=== PATIENT | female | born 1990 | race African-American/Black ===

== ENCOUNTER 2018-05-18 19:03 | Inpatient (IN) | payer OTHER ==
[~2018-05-18] VITALS: Ht 193 cm; Wt 127.0 kg
[2018-05-18 20:56] LABS: BASO # 0.1 x10^3/uL (0.0-0.2); BASO % 1 % (0-3); EOS # 0.1 x10^3/uL (0.0-0.7); EOS % 0 % (0-3); HEMATOCRIT 38.1 % (36.0-47.0); HEMOGLOBIN 13.4 g/dL (12.0-15.5); LYMPH # 2.3 x10^3/uL (1.0-4.8); LYMPH % 15 % (24-48); MEAN CORPUSCULAR HEMOGLOBIN 28 pg (25-35); MEAN CORPUSCULAR HGB CONC 35 g/dL (31-37); MEAN CORPUSCULAR VOLUME 78 fL (79-100); MONO # 1.2 x10^3/uL (0.0-1.1); MONO % 8 % (0-9); NEUT # 11.8 x10^3uL (1.8-7.7); NEUT % 76 % (31-73); PLATELET COUNT 303 x10^3/uL (140-400); RED BLOOD COUNT 4.86 x10^6/uL (3.50-5.40); RED CELL DISTRIBUTION WIDTH 14.6 % (11.5-14.5); WHITE BLOOD COUNT 15.5 x10^3/uL (4.0-11.0)
[2018-05-18] MEDS ORDERED: IV NORMAL SALINE 1000ML BAG 1,000 ML IV ONE (21:00)
[2018-05-18 21:06] LABS: CALCIUM 9.3 mg/dL (8.5-10.1); CREATININE 0.9 mg/dL (0.6-1.0); GFR 92.3; POTASSIUM 3.4 mmol/L (3.5-5.1)
[2018-05-18 21:11] LABS: ALBUMIN 3.5 g/dL (3.4-5.0); ALBUMIN/GLOBULIN RATIO 0.8 (1.0-1.7); TOTAL BILIRUBIN 1.1 mg/dL (0.2-1.0)
[2018-05-18] MEDS ORDERED: CONTRAST GIVEN. MC PRN (21:15)
[2018-05-18] MEDS ORDERED: DICYCLOMINE 20 MG/2 ML AMPUL. IM ONE (21:15)
[2018-05-18] MEDS ORDERED: IOHEXOL 300 MG/ML 100ML VIAL. IV ONE (21:15)
[2018-05-18] MEDS ORDERED: ONDANSETRON PF 4 MG/2 ML VIAL. IM ONE (21:15)
[2018-05-18] MEDS ORDERED: fentaNYL PF VIAL 100 MCG/2 ML VIAL IV ONE ×2 (21:15→23:30)
[2018-05-18] MEDS ORDERED: ONDANSETRON PF 4 MG/2 ML VIAL. IV ONE ×2 (21:30→23:30)
[2018-05-18 21:34] LABS: BILIRUBIN,URINE NEGATIVE (NEG); CLARITY,URINE CLEAR; COLOR,URINE AMBER; NITRITE,URINE NEGATIVE (NEG); PROTEIN,URINE NEGATIVE (NEG-TRACE); UROBILINOGEN,URINE 0.2 mg/dL (0.2 mg/dL)
[2018-05-18 21:46] LABS: BACTERIA,URINE MODERATE /HPF (0-FEW); RBC,URINE OCC /HPF (0-2); SQUAMOUS EPITHELIAL CELL,UR MOD /LPF
--- NOTE | 2018-05-18 22:09 | RAD ---
PQRS Compliance statement: One or more of the following individualized dose reduction techniques were utilized for this examination: 1. Automated exposure control. 2. Adjustment of the mA and/or kV according to patient size. 3. Use of iterative reconstruction technique. Indication:mid abd pain, nausea, vomiting, diarrhea, x1day
Omni 300 75ml, no priors TECHNIQUE: CT abdomen with IV contrast with multiplanar reformats. COMPARISON: None FINDINGS: Heart and lung bases. Liver, spleen, pancreas, adrenals within normal limits. Gallstones noted. No pericholecystic fluid. No nephrolithiasis or hydronephrosis. No enlarged retroperitoneal adenopathy. No bowel obstruction. The appendix is dilated measuring 1.7 cm with periappendiceal inflammatory changes. No pneumoperitoneum. No suspicious bony lesion. IMPRESSION: 1. There is a tubular thick-walled structure in the right lower quadrant with surrounding inflammatory changes. The nearby small bowel loops makes it difficult to confirm the presence of appendix. However the findings are concerning for appendicitis in right clinical context. 2. Cholelithiasis without sonographic evidence of acute cholecystitis. Electronically signed by: Rivas Liriano DO (05/18/2018 10:06 PM) [facility]
--- NOTE | 2018-05-18 22:26 | PHYS DOC ---
Past Medical History Past Medical History: Hypertension Past Surgical History: No Surgical History Alcohol Use: Occasionally Drug Use: None Adult General Chief Complaint Chief Complaint: ABDOMINAL PAIN HPI HPI Patient is a 27 year old female who presents with 5 loose stools today in vomited up bile once with mid abdominal pain and upper left abdominal pain that all started yesterday. Patient states her last visit. Was a week and half ago. She denies any urinary symptoms or fever. She denies any unusual vaginal discharge. Patient states that her only health history is hypertension during and anxiety. Patient states she does not take any medications daily. She has no known drug allergies Review of Systems Review of Systems Constitutional: Denies fever or chills [] Eyes: Denies change in visual acuity, redness, or eye pain [] HENT: Denies nasal congestion or sore throat [] Respiratory: Denies cough or shortness of breath [] Cardiovascular: No additional information not addressed in HPI [] GI: Mid abdominal pain, nausea, vomiting. Denies bloody stool. diarrhea x 5 stools [] : Denies dysuria or hematuria [] Musculoskeletal: Denies back pain or joint pain [] Integument: Denies rash or skin lesions [] Neurologic: Denies headache, focal weakness or sensory changes [] Endocrine: Denies polyuria or polydipsia [] All other systems were reviewed and found to be within normal limits, except as documented in this note. Current Medications Current Medications Current Medications Medications (Trade) Dose Ordered Sig/Maurice Start Time Stop Time Status Last Admin Dose Admin Acetaminophen (Tylenol) 650 mg PRN Q4HRS PRN 05/18/18 23:15 05/19/18 23:14 UNV Dicyclomine HCl (Bentyl) 10 mg 1X ONCE 05/18/18 21:15 05/18/18 21:16 DC 05/18/18 21:13 10 MG Fentanyl Citrate (Fentanyl 2ml Vial) 50 mcg 1X ONCE 05/18/18 23:30 05/18/18 23:31 UNV Info (CONTRAST GIVEN -- Rx MONITORING) 1 each PRN DAILY PRN 05/18/18 21:15 05/20/18 21:14 Iohexol (Omnipaque 300 Mg/ml) 75 ml 1X ONCE 05/18/18 21:15 05/18/18 21:16 DC 05/18/18 21:15 75 ML Ondansetron HCl (Zofran) 4 mg 1X ONCE 05/18/18 23:30 05/18/18 23:31 UNV Piperacillin Sod/ Tazobactam Sod 3.375 gm/Sodium Chloride 50 ml @ 100 mls/hr Q6HRS 05/19/18 00:00 UNV Sodium Chloride 1,000 ml @ 80 mls/hr [id number] 05/18/18 23:09 05/19/18 23:08 UNV Allergies Allergies Allergies Coded Allergies Type Severity Reaction Last Updated Verified No Known Drug Allergies 05/18/18 No Physical Exam Physical Exam Constitutional: Well developed, well nourished, no acute distress, non-toxic appearance. [] HENT: Normocephalic, atraumatic, bilateral external ears normal, oropharynx moist, no oral exudates, nose normal. [] Eyes: PERRLA, EOMI, conjunctiva normal, no discharge. [] Neck: Normal range of motion, no tenderness, supple, no stridor. [] Cardiovascular:Heart rate regular rhythm, no murmur [] Lungs & Thorax: Bilateral breath sounds clear to auscultation [] Abdomen: Bowel sounds normal, soft, Mid and left upper quad tenderness, no masses, no pulsatile masses. [] Skin: Warm, dry, no erythema, no rash. [] Back: No tenderness, no CVA tenderness. [] Extremities: No tenderness, no cyanosis, no clubbing, ROM intact, no edema. [] Neurologic: Alert and oriented X 3, normal motor function, normal sensory function, no focal deficits noted. [] Psychologic: Affect normal, judgement normal, mood normal. [] Current Patient Data Vital Signs Vital Signs Date Time Temp Pulse Resp B/P (MAP) Pulse Ox O2 Delivery O2 Flow Rate FiO2 05/18/18 21:05 20 98 05/18/18 19:40 98.8 93 145/75 (98) Room Air 98.8 Lab Values Laboratory Tests Test 05/18/18 20:10 05/18/18 21:17 05/18/18 21:25 White Blood Count 15.5 x10^3/uL (4.0-11.0) H Red Blood Count 4.86 x10^6/uL (3.50-5.40) Hemoglobin 13.4 g/dL (12.0-15.5) Hematocrit 38.1 % (36.0-47.0) Mean Corpuscular Volume 78 fL (79-100) L Mean Corpuscular Hemoglobin 28 pg (25-35) Mean Corpuscular Hemoglobin Concent 35 g/dL (31-37) Red Cell Distribution Width 14.6 % (11.5-14.5) H Platelet Count 303 x10^3/uL (140-400) Neutrophils (%) (Auto) 76 % (31-73) H Lymphocytes (%) (Auto) 15 % (24-48) L Monocytes (%) (Auto) 8 % (0-9) Eosinophils (%) (Auto) 0 % (0-3) Basophils (%) (Auto) 1 % (0-3) Neutrophils # (Auto) 11.8 x10^3uL (1.8-7.7) H Lymphocytes # (Auto) 2.3 x10^3/uL (1.0-4.8) Monocytes # (Auto) 1.2 x10^3/uL (0.0-1.1) H Eosinophils # (Auto) 0.1 x10^3/uL (0.0-0.7) Basophils # (Auto) 0.1 x10^3/uL (0.0-0.2) Sodium Level 140 mmol/L (136-145) Potassium Level 3.4 mmol/L (3.5-5.1) L Chloride Level 103 mmol/L (98-107) Carbon Dioxide Level 28 mmol/L (21-32) Anion Gap 9 (6-14) Blood Urea Nitrogen 8 mg/dL (7-20) Creatinine 0.9 mg/dL (0.6-1.0) Estimated GFR (Cockcroft-Gault) 92.3 BUN/Creatinine Ratio 9 (6-20) Glucose Level 99 mg/dL (70-99) Calcium Level 9.3 mg/dL (8.5-10.1) Total Bilirubin 1.1 mg/dL (0.2-1.0) H Aspartate Amino Transferase (AST) 10 U/L (15-37) L Alanine Aminotransferase (ALT) 17 U/L (14-59) Alkaline Phosphatase 102 U/L (46-116) Total Protein 8.0 g/dL (6.4-8.2) Albumin 3.5 g/dL (3.4-5.0) Albumin/Globulin Ratio 0.8 (1.0-1.7) L Lipase 83 U/L (73-393) Urine Collection Type Void Urine Color Maggi Urine Clarity Clear Urine pH 7.0 Urine Specific [place] >=1.030 Urine Protein Negative mg/dL (NEG-TRACE) Urine Glucose (UA) Negative mg/dL (NEG) Urine Ketones (Stick) 40 mg/dL (NEG) Urine Blood Negative (NEG) Urine Nitrite Negative (NEG) Urine Bilirubin Negative (NEG) Urine Urobilinogen Dipstick 0.2 mg/dL (0.2 mg/dL) Urine Leukocyte Esterase Small (NEG) Urine RBC Occ /HPF (0-2) Urine WBC 1-4 /HPF (0-4) Urine Squamous Epithelial Cells Mod /LPF Urine Bacteria Moderate /HPF (0-FEW) Urine Mucus Mod /LPF POC Urine HCG, Qualitative Hcg negative (Negative) Laboratory Tests 05/18/18 20:10 Laboratory Tests 05/18/18 20:10 EKG EKG [] Radiology/Procedures Radiology/Procedures CT ABD Impressions: [facility] [address] [place] [address] IMAGING REPORT Signed PATIENT: CAITIE DOTSON ACCOUNT: [id number] : 1990 LOCATION: ER AGE: 27 SEX: F EXAM STATUS: REG ER ORD. PHYSICIAN: MONICA DEE APRN REASON: LEFT UPPER AND MID ABDOMINAL PAIN AND DIARRHEA PROCEDURE: CT ABDOMEN W/CONTRAST PQRS Compliance statement: One or more of the following individualized dose reduction techniques were utilized for this examination: 1. Automated exposure control. 2. Adjustment of the mA and/or kV according to patient size. 3. Use of iterative reconstruction technique. Indication:mid abd pain, nausea, vomiting, diarrhea, x1day
Omni 300 75ml, no priors TECHNIQUE: CT abdomen with IV contrast with multiplanar reformats. COMPARISON: None FINDINGS: Heart and lung bases. Liver, spleen, pancreas, adrenals within normal limits. Gallstones noted. No pericholecystic fluid. No nephrolithiasis or hydronephrosis. No enlarged retroperitoneal adenopathy. No bowel obstruction. The appendix is dilated measuring 1.7 cm with periappendiceal inflammatory changes. No pneumoperitoneum. No suspicious bony lesion. IMPRESSION: 1. There is a tubular thick-walled structure in the right lower quadrant with surrounding inflammatory changes. The nearby small bowel loops makes it difficult to confirm the presence of appendix. However the findings are concerning for appendicitis in right clinical context. 2. Cholelithiasis without sonographic evidence of acute cholecystitis. Electronically signed by: Rivas Klein DO (05/18/2018 10:06 PM) [facility] DICTATED and SIGNED BY: RIVAS KLEIN DO DATE: 05/18/182158 Course & Med Decision Making Course & Med Decision Making Patient is a 27 year old female who presents with 5 loose stools today in vomited up bile once with mid abdominal pain and upper left abdominal pain that all started yesterday. Patient states her last visit. Was a week and half ago. She denies any urinary symptoms or fever. She denies any unusual vaginal discharge. Patient states that her only health history is hypertension during and anxiety. Patient states she does not take any medications daily. She has no known drug allergies. She is alert and oriented. Upon examination abdomen is soft and tender in bilateral mid abdominal area and upper left abdominal area. Patient did not have any lower right sided abdominal tenderness. Patient does have a white blood cell count of 15.5. Urine is not infected. Patient is afebrile. She rates her pain 9 out of 10. Lungs are clear all lobes. No CVA tenderness. Patient states that nothing makes the pain better or worse. Heart rate is regular without murmur. CT abdomen shows 1. There is a tubular thick-walled structure in the right lower quadrant with surrounding inflammatory changes. The nearby small bowel loops makes it difficult to confirm the presence of appendix. However the findings are concerning for appendicitis in right clinical context. 2. Cholelithiasis without sonographic evidence of acute cholecystitis. I have ordered a ultrasound of her right lower quadrant. Skin is pink warm and dry mucous is moist. Patient is being admitted for appendicitis. There is a consult to general surgery. I have also ordered ordered Zosyn antibiotic. Upon reexamination patient states the pain is starting to come back if she states that it is mid abdominal pain still and that she is slightly nauseated again. Patient still has mid abdominal tenderness upon palpation. Does not have right lower abdominal tenderness at this time. I have ordered more pain medication and nausea medication for before she goes up to a inpatient room. The patient is stable and in no distress. [] Dragon Disclaimer Dragon Disclaimer This electronic medical record was generated, in whole or in part, using a voice recognition dictation system. Departure Departure Impression: Primary Impression: Appendicitis Disposition: ADMITTED INPATIENT Admitting Physician: Other Condition: STABLE Referrals: NO PCP (PCP) Problem Qualifiers Primary Impression: Appendicitis Appendicitis type: unspecified Qualified Codes: K37 - Unspecified appendicitis MONICA DEE SANITATION MANAGER May 18, 2018 22:26
[2018-05-18] MEDS ORDERED: ACETAMINOPHEN 325 MG TABLET. PO PRN (23:15)
[2018-05-18] MEDS ORDERED: ONDANSETRON PF 4 MG/2 ML VIAL. IV PRN (23:15)
--- NOTE | 2018-05-18 23:29 | RAD ---
Indication: Abnormal CT. Right lower quadrant abdominal pain TECHNIQUE: Grayscale and color Doppler images of the right lower quadrant COMPARISON: CT from same day Findings/ impression: Appendix is not visualized. No right lower quadrant fluid collection. Electronically signed by: Rivas Liriano DO (05/18/2018 11:26 PM) [facility]
[2018-05-18] MEDS ORDERED: PIPERACILLIN/TAZOBACTAM 3.375 GM in IV NORMAL SALINE 50ML 50 ML IV ONE (23:30)
[2018-05-18] MEDS: IV NORMAL SALINE 1000ML BAG 1,000 ML IV SCH (23:55)
[2018-05-19] VITALS (10 sets, daily range): BP systolic 122–146; BP diastolic 64–99
[2018-05-19] MEDS: fentaNYL PF VIAL 100 MCG/2 ML VIAL IV PRN ×8 (00:44→13:20)
[2018-05-19] MEDS ORDERED: BUPIVAC MPF-EPI 0.5%-1:200000 30 ML VIAL. ONE (06:11)
[2018-05-19] MEDS: PIPERACILLIN/TAZOBACTAM 3.375 GM in IV NORMAL SALINE 50ML 50 ML IV SCH ×3 (06:25→18:16)
[2018-05-19] MEDS ORDERED: GLYCOPYRROLATE 1 MG/5 ML VIAL. ONE (07:16)
[2018-05-19] MEDS ORDERED: fentaNYL PF VIAL 100 MCG/2 ML VIAL ONE ×3 (07:16→09:33)
[2018-05-19] MEDS ORDERED: ROCURONIUM 50 MG/5 ML VIAL. ONE (07:16)
[2018-05-19] MEDS ORDERED: NEOSTIGMINE 10 MG/10 ML VIAL. ONE (07:16)
[2018-05-19] MEDS ORDERED: DEXAMETHASONE SOD PHOS 20 MG/5 ML VIAL. ONE (07:17)
[2018-05-19] MEDS ORDERED: PROPOFOL 20 ML IV ONE (07:17)
[2018-05-19] MEDS ORDERED: DESFLURANE 31 TO 60 MINUTES IH ONE ×2 (07:17→08:55)
[2018-05-19] MEDS ORDERED: LIDOCAINE 2% PF Vial for OR 5 ML VIAL. ONE (07:18)
[2018-05-19] MEDS ORDERED: ONDANSETRON PF 4 MG/2 ML VIAL. ONE (07:18)
[2018-05-19] MEDS ORDERED: IV RINGERS,LACTATED 1000ML 1,000 ML IV SCH (07:18)
[2018-05-19] MEDS ORDERED: fentaNYL PF VIAL 100 MCG/2 ML VIAL IV PRN (07:30)
[2018-05-19] MEDS ORDERED: HYDROmorphone 2 MG/ML VIAL IV PRN (07:30)
[2018-05-19] MEDS ORDERED: MORPHINE SULFATE 2 MG/ML VIAL. IV PRN (07:30)
[2018-05-19] MEDS ORDERED: PROCHLORPERAZINE 10 MG/2 ML VIAL. IV PRN (07:30)
[2018-05-19] MEDS ORDERED: LIDOCAINE 1% PF 2 ML VIAL. ID PRN (07:30)
[2018-05-19] MEDS ORDERED: ONDANSETRON PF 4 MG/2 ML VIAL. IV PRN (07:30)
--- NOTE | 2018-05-19 07:33 | PDOC2 ---
CONSULT Date of Consult Date of Consult DATE: 05/19/18 TIME: 07:29 History of Present Illness Reason for Visit: The patient is a 27 year old female who reported to the ER with a 2 day history of abdominal pain; the pain is described in the mid abdomen with associated nausea and vomiting Past Medical History Past Medical History hypertension Past Surgical History Past Surgical History Csection Social History <1 pack per day Current Problem List Problem List Problems Medical Problems: (1) Appendicitis Status: Acute Current Medications Current Medications Current Medications Ondansetron HCl (Zofran) 4 mg 1X ONCE IM ; Start 05/18/18 at 21:15; Stop at 21:16; Status Cancel Dicyclomine HCl (Bentyl) 10 mg 1X ONCE IM Last administered on 05/18/18at 21: 13; Start 05/18/18 at 21:15; Stop 05/18/18 at 21:16; Status DC Fentanyl Citrate (Fentanyl 2ml Vial) 50 mcg 1X ONCE IV Last administered on at 21:05; Start 05/18/18 at 21:15; Stop 05/18/18 at 21:16; Status DC Sodium Chloride 1,000 ml @ 1,000 mls/hr 1X ONCE IV Last administered on 05/18at 21:04; Start 05/18/18 at 21:00; Stop 05/18/18 at 21:59; Status DC Ondansetron HCl (Zofran) 4 mg 1X ONCE IV Last administered on 05/18/18at 21:05 ; Start 05/18/18 at 21:30; Stop 05/18/18 at 21:31; Status DC Iohexol (Omnipaque 300 Mg/ml) 75 ml 1X ONCE IV Last administered on at 21:15; Start 05/18/18 at 21:15; Stop 05/18/18 at 21:16; Status DC Info (CONTRAST GIVEN -- Rx MONITORING) 1 each PRN DAILY PRN MC SEE COMMENTS; Start 05/18/18 at 21:15; Stop 05/20/18 at 21:14 Piperacillin Sod/ Tazobactam Sod 3.375 gm/Sodium Chloride 50 ml @ 100 mls/hr Q6HRS IV Last administered on 05/19/18at 06:25; Start 05/19/18 at 06:00 Ondansetron HCl (Zofran) 4 mg PRN Q8HRS PRN IV NAUSEA/VOMITING; Start at 23:15; Stop 05/19/18 at 23:14 Fentanyl Citrate (Fentanyl 2ml Vial) 50 mcg PRN Q2HR PRN IV PAIN Last administered on 05/19/18at 06:27; Start 05/18/18 at 23:15; Stop 05/19/18 at 23 :14 Sodium Chloride 1,000 ml @ 80 mls/hr [id number] IV Last administered on at 23:55; Start 05/18/18 at 23:15; Stop 05/19/18 at 23:14 Acetaminophen (Tylenol) 650 mg PRN Q4HRS PRN PO FEVER; Start 05/18/18 at 23:15 ; Stop 05/19/18 at 23:14 Ondansetron HCl (Zofran) 4 mg 1X ONCE IV Last administered on 05/19/18at 00:43 ; Start 05/18/18 at 23:30; Stop 05/18/18 at 23:31; Status DC Fentanyl Citrate (Fentanyl 2ml Vial) 50 mcg 1X ONCE IV Last administered on at 23:54; Start 05/18/18 at 23:30; Stop 05/18/18 at 23:31; Status DC Piperacillin Sod/ Tazobactam Sod 3.375 gm/Sodium Chloride 50 ml @ 100 mls/hr ONCE ONCE IV Last administered on 05/18/18at 23:55; Start 05/18/18 at 23:30; Stop 05/18/18 at 23:59; Status DC Bupivacaine HCl/ Epinephrine Bitart (Sensorcain-Mpf Epi 0.5%-1:[id number]) 30 ml STK -MED ONCE .ROUTE ; Start 05/19/18 at 06:11; Stop 05/19/18 at 07:12; Status DC Neostigmine Methylsulfate (Bloxiverz) 10 mg STK-MED ONCE .ROUTE ; Start at 07:16; Stop 05/19/18 at 07:17; Status DC Fentanyl Citrate (Fentanyl 2ml Vial) 100 mcg STK-MED ONCE .ROUTE ; Start at 07:16; Stop 05/19/18 at 07:17; Status DC Glycopyrrolate (Robinul) 1 mg STK-MED ONCE .ROUTE ; Start 05/19/18 at 07:16; Stop 05/19/18 at 07:17; Status DC Rocuronium [place] (Zemuron) 50 mg STK-MED ONCE .ROUTE ; Start 05/19/18 at 07: 16; Stop 05/19/18 at 07:17; Status DC Desflurane (Suprane) 30 ml STK-MED ONCE IH ; Start 05/19/18 at 07:17; Stop at 07:18; Status DC Propofol 20 ml @ As Directed STK-MED ONCE IV ; Start 05/19/18 at 07:17; Stop 05/19/18 at 07:18; Status DC Dexamethasone Sodium Phosphate (Decadron) 20 mg STK-MED ONCE .ROUTE ; Start at 07:17; Stop 05/19/18 at 07:18; Status DC Lidocaine HCl (Lidocaine Pf 2% Vial) 5 ml STK-MED ONCE .ROUTE ; Start 05/19/18 at 07:18; Stop 05/19/18 at 07:19; Status DC Ondansetron HCl (Zofran) 4 mg STK-MED ONCE .ROUTE ; Start 05/19/18 at 07:18; Stop 05/19/18 at 07:19; Status DC Ondansetron HCl (Zofran) 4 mg PRN Q6HRS PRN IV NAUSEA/VOMITING; Start at 07:30; Stop 05/19/18 at 18:00 Fentanyl Citrate (Fentanyl 2ml Vial) 25 mcg PRN Q5MIN PRN IV MILD PAIN; Start 05/19/18 at 07:30; Stop 05/19/18 at 18:00 Fentanyl Citrate (Fentanyl 2ml Vial) 50 mcg PRN Q5MIN PRN IV MODERATE TO SEVERE PAIN; Start 05/19/18 at 07:30; Stop 05/19/18 at 18:00 Morphine Sulfate (Morphine Sulfate) 1 mg PRN Q10MIN PRN IV SEVERE PAIN; Start 05/19/18 at 07:30; Stop 05/19/18 at 18:00 Ringer's Solution 1,000 ml @ 30 mls/hr Q24H IV ; Start 05/19/18 at 07:18; Stop 05/19/18 at 19:17 Lidocaine HCl (Xylocaine-Mpf 1% 2ml Vial) 2 ml 1X PRN PRN ID IV START; Start 05/19/18 at 07:30; Stop 05/19/18 at 18:00 Hydromorphone HCl (Dilaudid) 0.5 mg PRN Q10MIN PRN IV SEV PAIN, Second choice; Start 05/19/18 at 07:30; Stop 05/19/18 at 18:00 Prochlorperazine Edisylate (Compazine) 5 mg PACU PRN PRN IV NAUSEA, MRX1; Start 05/19/18 at 07:30; Stop 05/19/18 at 18:00 Allergies Allergies: Coded Allergies: No Known Drug Allergies (Unverified , 05/18/18) ROS General: No: Chills, Night Sweats, Fatigue, Malaise, Appetite, Other PSYCHOLOGICAL ROS: No: Anxiety, Behavioral Disorder, Concentration difficultie , Decreased libido, Depression, Disorientation, Hallucinations, Hostility, Irritablity, Memory difficulties, Mood Swings, Obsessive thoughts, Physical abuse, Sexual abuse, Sleep disturbances, Suicidal ideation, Other Eyes: No Blurry vision, No Decreased vision, No Double vision, No Dry eyes, No Excessive tearing, No Eye Pain, No Itchy Eyes, No Loss of vision, No Photophobia , No Scotomata, No Uses contacts, No Uses glasses, No Other HEENT: No: Heacaches, Visual Changes, Hearing change, Nasal congestion, Nasal discharge, Oral lesions, Sinus pain, Sore Throat, Epistaxis, Sneezing, Snoring, Tinnitus, Vertigo, Vocal changes, Other ALLERGY AND IMMUNOLOGY: No: Hives, Insect Bite Sensitivity, Itchy/Watery Eyes, Nasal Congestion, Post Nasal Drip, Seasonal Allergies, Other Hematological and Lymphatic: No: Bleeding Problems, Blood Clots, Blood Transfusions, Brusing, Night Sweats, Pallor, Swollen Lymph Nodes, Other Respiratory: No: Cough, Hemoptysis, Orthopnea, Pleuritic Pain, Shortness of breath, SOB with excertion, Sputum Changes, Stridor, Tachypnea, Wheezing, Other Cardiovascular: No Chest Pain, No Palpitations, No Orthopnea, No Paroxysmal Noc. Dyspnea, No Edema, No Lt Headedness, No Other Gastrointestinal: Yes Nausea, Yes Vomiting, Yes Abdominal Pain Genitourinary: No Dysuria, No Frequency, No Incontinence, No Hematuria, No Retention, No Discharge, No Urgency, No Pain, No Flank Pain, No Other, No , No , No , No , No , No , No Musculoskeletal: No Gait Disturbance, No Joint Pain, No Joint Stiffness, No Joint Swelling, No Muscle Pain, No Muscular Weakness, No Pain In:, No Swelling In:, No Other Neurological: No Behavorial Changes, No Bowel/Bladder ControlChng, No Confusion , No Dizziness, No Gait Disturbance, No Headaches, No Impaired Coord/balance, No Memory Loss, No Numbness/Tingling, No Seizures, No Speech Problems, No Tremors, No Visual Changes, No Weakness, No Other Skin: No Dry Skin, No Eczema, No Hair Changes, No Lumps, No Mole Changes, No Mottling, No Nail Changes, No Pruritus, No Rash, No Skin Lesion Changes, No Other, No Acne Physical Exam General: Alert, Oriented X3, Cooperative HEENT: Atraumatic Lungs: Clear to auscultation Heart: Regular rate Abdomen: Soft (morbidly obese, tender in RLQ with palpation) Extremities: No clubbing, No cyanosis Skin: No rashes, No breakdown Neuro: Normal speech, Strength at 5/5 X4 ext Psych/Mental Status: Mental status NL Vitals VITALS Vital Signs Date Time Temp Pulse Resp B/P (MAP) Pulse Ox O2 Delivery O2 Flow Rate FiO2 05/19/18 06:57 95 05/19/18 03:15 16 Room Air 05/19/18 03:00 96.4 98 129/67 (87) 96.4 Labs Labs Laboratory Tests Test 05/18/18 20:10 05/18/18 21:17 05/18/18 21:25 White Blood Count 15.5 x10^3/uL (4.0-11.0) Red Blood Count 4.86 x10^6/uL (3.50-5.40) Hemoglobin 13.4 g/dL (12.0-15.5) Hematocrit 38.1 % (36.0-47.0) Mean Corpuscular Volume 78 fL (79-100) Mean Corpuscular Hemoglobin 28 pg (25-35) Mean Corpuscular Hemoglobin Concent 35 g/dL (31-37) Red Cell Distribution Width 14.6 % (11.5-14.5) Platelet Count 303 x10^3/uL (140-400) Neutrophils (%) (Auto) 76 % (31-73) Lymphocytes (%) (Auto) 15 % (24-48) Monocytes (%) (Auto) 8 % (0-9) Eosinophils (%) (Auto) 0 % (0-3) Basophils (%) (Auto) 1 % (0-3) Neutrophils # (Auto) 11.8 x10^3uL (1.8-7.7) Lymphocytes # (Auto) 2.3 x10^3/uL (1.0-4.8) Monocytes # (Auto) 1.2 x10^3/uL (0.0-1.1) Eosinophils # (Auto) 0.1 x10^3/uL (0.0-0.7) Basophils # (Auto) 0.1 x10^3/uL (0.0-0.2) Sodium Level 140 mmol/L (136-145) Potassium Level 3.4 mmol/L (3.5-5.1) Chloride Level 103 mmol/L (98-107) Carbon Dioxide Level 28 mmol/L (21-32) Anion Gap 9 (6-14) Blood Urea Nitrogen 8 mg/dL (7-20) Creatinine 0.9 mg/dL (0.6-1.0) Estimated GFR (Cockcroft-Gault) 92.3 BUN/Creatinine Ratio 9 (6-20) Glucose Level 99 mg/dL (70-99) Calcium Level 9.3 mg/dL (8.5-10.1) Total Bilirubin 1.1 mg/dL (0.2-1.0) Aspartate Amino Transf (AST/SGOT) 10 U/L (15-37) Alanine Aminotransferase (ALT/SGPT) 17 U/L (14-59) Alkaline Phosphatase 102 U/L (46-116) Total Protein 8.0 g/dL (6.4-8.2) Albumin 3.5 g/dL (3.4-5.0) Albumin/Globulin Ratio 0.8 (1.0-1.7) Lipase 83 U/L (73-393) Urine Collection Type Void Urine Color Maggi Urine Clarity Clear Urine pH 7.0 Urine Specific [place] >=1.030 Urine Protein Negative mg/dL (NEG-TRACE) Urine Glucose (UA) Negative mg/dL (NEG) Urine Ketones (Stick) 40 mg/dL (NEG) Urine Blood Negative (NEG) Urine Nitrite Negative (NEG) Urine Bilirubin Negative (NEG) Urine Urobilinogen Dipstick 0.2 mg/dL (0.2 mg/dL) Urine Leukocyte Esterase Small (NEG) Urine RBC Occ /HPF (0-2) Urine WBC 1-4 /HPF (0-4) Urine Squamous Epithelial Cells Mod /LPF Urine Bacteria Moderate /HPF (0-FEW) Urine Mucus Mod /LPF Bedside Urine HCG, Qualitative Hcg negative (Negative) Laboratory Tests Test 05/18/18 20:10 05/18/18 21:17 05/18/18 21:25 White Blood Count 15.5 x10^3/uL (4.0-11.0) Red Blood Count 4.86 x10^6/uL (3.50-5.40) Hemoglobin 13.4 g/dL (12.0-15.5) Hematocrit 38.1 % (36.0-47.0) Mean Corpuscular Volume 78 fL (79-100) Mean Corpuscular Hemoglobin 28 pg (25-35) Mean Corpuscular Hemoglobin Concent 35 g/dL (31-37) Red Cell Distribution Width 14.6 % (11.5-14.5) Platelet Count 303 x10^3/uL (140-400) Neutrophils (%) (Auto) 76 % (31-73) Lymphocytes (%) (Auto) 15 % (24-48) Monocytes (%) (Auto) 8 % (0-9) Eosinophils (%) (Auto) 0 % (0-3) Basophils (%) (Auto) 1 % (0-3) Neutrophils # (Auto) 11.8 x10^3uL (1.8-7.7) Lymphocytes # (Auto) 2.3 x10^3/uL (1.0-4.8) Monocytes # (Auto) 1.2 x10^3/uL (0.0-1.1) Eosinophils # (Auto) 0.1 x10^3/uL (0.0-0.7) Basophils # (Auto) 0.1 x10^3/uL (0.0-0.2) Sodium Level 140 mmol/L (136-145) Potassium Level 3.4 mmol/L (3.5-5.1) Chloride Level 103 mmol/L (98-107) Carbon Dioxide Level 28 mmol/L (21-32) Anion Gap 9 (6-14) Blood Urea Nitrogen 8 mg/dL (7-20) Creatinine 0.9 mg/dL (0.6-1.0) Estimated GFR (Cockcroft-Gault) 92.3 BUN/Creatinine Ratio 9 (6-20) Glucose Level 99 mg/dL (70-99) Calcium Level 9.3 mg/dL (8.5-10.1) Total Bilirubin 1.1 mg/dL (0.2-1.0) Aspartate Amino Transf (AST/SGOT) 10 U/L (15-37) Alanine Aminotransferase (ALT/SGPT) 17 U/L (14-59) Alkaline Phosphatase 102 U/L (46-116) Total Protein 8.0 g/dL (6.4-8.2) Albumin 3.5 g/dL (3.4-5.0) Albumin/Globulin Ratio 0.8 (1.0-1.7) Lipase 83 U/L (73-393) Urine Collection Type Void Urine Color Maggi Urine Clarity Clear Urine pH 7.0 Urine Specific [place] >=1.030 Urine Protein Negative mg/dL (NEG-TRACE) Urine Glucose (UA) Negative mg/dL (NEG) Urine Ketones (Stick) 40 mg/dL (NEG) Urine Blood Negative (NEG) Urine Nitrite Negative (NEG) Urine Bilirubin Negative (NEG) Urine Urobilinogen Dipstick 0.2 mg/dL (0.2 mg/dL) Urine Leukocyte Esterase Small (NEG) Urine RBC Occ /HPF (0-2) Urine WBC 1-4 /HPF (0-4) Urine Squamous Epithelial Cells Mod /LPF Urine Bacteria Moderate /HPF (0-FEW) Urine Mucus Mod /LPF Bedside Urine HCG, Qualitative Hcg negative (Negative) Images Images CT reviewed Assessment/Plan Assessment/Plan 27 year old female with RLQ pain, CT concerning for appendicitis, WBC elevated ; recommend to OR for laparoscopy. The details and risks of surgery were discussed with the patient. She understands and would like to proceed. HERMILA NEVILLE MD May 19, 2018 07:33
[2018-05-19] MEDS ORDERED: PROCHLORPERAZINE 10 MG/2 ML VIAL. ONE (08:27)
--- NOTE | 2018-05-19 08:48 | PDOC4 ---
Operative Note Operative Note Preoperative Diagnosis: Acute Appendicitis Postoperative Diagnosis: Same Procedure: Laparoscopic appendectomy Surgeon: Ronen Anesthesia: Gen. EBL: 10 mL Specimen: Appendix to pathology Drains: None Complications: None Indication: The patient is a 27-year-old female who reported to the emergency department with abdominal pain. The evaluation is consistent with acute appendicitis. The patient was offered surgical treatment with a laparoscopic appendectomy. The risks of surgery were discussed which include bleeding, infection, visceral injury, pain, anesthetic risk, potential need for additional surgery or procedure. The patient understands and would like to proceed. Description: The patient was taken to the operating room and placed supine on the operating table. Gen. anesthesia was performed. The abdomen was prepped with ChloraPrep and draped in a standard surgical manner. A supraumbilical incision was made through which a veress needle was inserted and a pneumoperitoneum was created. A visualized 5 mm trocar was inserted and the laparoscope was introduced. In the left lower quadrant a 5 mm trocar was inserted. In the suprapubic region a 12 mm trocar was inserted. The appendix was identified and appeared inflamed consistent with acute appendicitis. The appendix appeared markedly thickened and enlarged, however there was no clear evidence of perforation or periappendiceal abscess. The mesoappendix was bluntly from the appendix. The mesoappendix was controlled using several clips and it was divided. The appendix was then amputated off the cecum using an Endo KIRILL 45 stapling device. The appendix was then placed in an endoscopic bag and extracted at the suprapubic incision site. The fascia there was closed with 0 Vicryl and infiltrated with half percent Marcaine with epinephrine. The RLQ was visualized and the staple line appeared well intact and hemostasis was good. No other abnormalities were identified grossly. The remaining ports were removed and the pneumoperitoneum was relieved. The skin at all incision sites was closed with 4-0 Monocryl. Steri-Strips and dressings were applied. The patient tolerated the procedure well and was sent to the recovery room in stable condition. At the end of the case all counts were correct. HERMILA NEVILLE MD May 19, 2018 08:48
[2018-05-19] MEDS ORDERED: SEVOFLURANE 31 TO 60 MINUTES. IH ONE (08:56)
[2018-05-19] MEDS ORDERED: SEVOFLURANE 61 TO 120 MINUTES. IH ONE (08:56)
[2018-05-19] MEDS ORDERED: oxyCODONE/APAP 5/325 1 TAB TABLET PO PRN (09:00)
[2018-05-19] MEDS: IV NORMAL SALINE 1000ML BAG 1,000 ML IV SCH (11:45)
[2018-05-19] MEDS: oxyCODONE/APAP 5/325 1 TAB TABLET PO PRN ×2 (14:31→18:16)
--- NOTE | 2018-05-19 16:05 | PDOC1 ---
History and Physical Date of Admission Date of Admission DATE: 05/19/18 TIME: 16:04 Identification/Chief Complaint Chief Complaint 27 year old female who presents with 5 loose stools , vomited up bile once with mid abdominal pain and upper left abdominal pain that all started Friday . denies any urinary symptoms or fever. She denies any unusual vaginal discharge. hypertension during and anxiety. Past Medical History Past Medical History Past Medical History Past Medical History: Hypertension Past Surgical History: No Surgical History Alcohol Use: Occasionally Drug Use: None family hx obesity, htn Cardiovascular: HTN Rheumatologic: No pertinent hx Renal/: No pertinent hx Social History Smoke: <1 pack per day ALCOHOL: rare Drugs: None Current Problem List Problem List Problems Medical Problems: (1) Appendicitis Status: Acute Current Medications Current Medications Current Medications Ondansetron HCl (Zofran) 4 mg 1X ONCE IM ; Start 05/18/18 at 21:15; Stop at 21:16; Status Cancel Dicyclomine HCl (Bentyl) 10 mg 1X ONCE IM Last administered on 05/18/18at 21: 13; Start 05/18/18 at 21:15; Stop 05/18/18 at 21:16; Status DC Fentanyl Citrate (Fentanyl 2ml Vial) 50 mcg 1X ONCE IV Last administered on at 21:05; Start 05/18/18 at 21:15; Stop 05/18/18 at 21:16; Status DC Sodium Chloride 1,000 ml @ 1,000 mls/hr 1X ONCE IV Last administered on 05/18at 21:04; Start 05/18/18 at 21:00; Stop 05/18/18 at 21:59; Status DC Ondansetron HCl (Zofran) 4 mg 1X ONCE IV Last administered on 05/18/18at 21:05 ; Start 05/18/18 at 21:30; Stop 05/18/18 at 21:31; Status DC Iohexol (Omnipaque 300 Mg/ml) 75 ml 1X ONCE IV Last administered on at 21:15; Start 05/18/18 at 21:15; Stop 05/18/18 at 21:16; Status DC Info (CONTRAST GIVEN -- Rx MONITORING) 1 each PRN DAILY PRN MC SEE COMMENTS; Start 05/18/18 at 21:15; Stop 05/20/18 at 21:14 Piperacillin Sod/ Tazobactam Sod 3.375 gm/Sodium Chloride 50 ml @ 100 mls/hr Q6HRS IV Last administered on 05/19/18at 10:36; Start 05/19/18 at 06:00 Ondansetron HCl (Zofran) 4 mg PRN Q8HRS PRN IV NAUSEA/VOMITING; Start at 23:15; Stop 05/19/18 at 23:14 Fentanyl Citrate (Fentanyl 2ml Vial) 50 mcg PRN Q2HR PRN IV PAIN Last administered on 05/19/18at 13:20; Start 05/18/18 at 23:15; Stop 05/19/18 at 23 :14 Sodium Chloride 1,000 ml @ 80 mls/hr [id number] IV Last administered on at 11:45; Start 05/18/18 at 23:15; Stop 05/19/18 at 23:14 Acetaminophen (Tylenol) 650 mg PRN Q4HRS PRN PO FEVER; Start 05/18/18 at 23:15 ; Stop 05/19/18 at 23:14 Ondansetron HCl (Zofran) 4 mg 1X ONCE IV Last administered on 05/19/18at 00:43 ; Start 05/18/18 at 23:30; Stop 05/18/18 at 23:31; Status DC Fentanyl Citrate (Fentanyl 2ml Vial) 50 mcg 1X ONCE IV Last administered on at 23:54; Start 05/18/18 at 23:30; Stop 05/18/18 at 23:31; Status DC Piperacillin Sod/ Tazobactam Sod 3.375 gm/Sodium Chloride 50 ml @ 100 mls/hr ONCE ONCE IV Last administered on 05/18/18at 23:55; Start 05/18/18 at 23:30; Stop 05/18/18 at 23:59; Status DC Bupivacaine HCl/ Epinephrine Bitart (Sensorcain-Mpf Epi 0.5%-[id number]) 30 ml STK -MED ONCE .ROUTE Last administered on 05/19/18at 07:52; Start 05/19/18 at 06: 11; Stop 05/19/18 at 07:12; Status DC Neostigmine Methylsulfate (Bloxiverz) 10 mg STK-MED ONCE .ROUTE ; Start at 07:16; Stop 05/19/18 at 07:17; Status DC Fentanyl Citrate (Fentanyl 2ml Vial) 100 mcg STK-MED ONCE .ROUTE ; Start at 07:16; Stop 05/19/18 at 07:17; Status DC Glycopyrrolate (Robinul) 1 mg STK-MED ONCE .ROUTE ; Start 05/19/18 at 07:16; Stop 05/19/18 at 07:17; Status DC Rocuronium [place] (Zemuron) 50 mg STK-MED ONCE .ROUTE ; Start 05/19/18 at 07: 16; Stop 05/19/18 at 07:17; Status DC Desflurane (Suprane) 30 ml STK-MED ONCE IH ; Start 05/19/18 at 07:17; Stop at 07:18; Status DC Propofol 20 ml @ As Directed STK-MED ONCE IV ; Start 05/19/18 at 07:17; Stop 05/19/18 at 07:18; Status DC Dexamethasone Sodium Phosphate (Decadron) 20 mg STK-MED ONCE .ROUTE ; Start at 07:17; Stop 05/19/18 at 07:18; Status DC Lidocaine HCl (Lidocaine Pf 2% Vial) 5 ml STK-MED ONCE .ROUTE ; Start 05/19/18 at 07:18; Stop 05/19/18 at 07:19; Status DC Ondansetron HCl (Zofran) 4 mg STK-MED ONCE .ROUTE ; Start 05/19/18 at 07:18; Stop 05/19/18 at 07:19; Status DC Ondansetron HCl (Zofran) 4 mg PRN Q6HRS PRN IV NAUSEA/VOMITING; Start at 07:30; Stop 05/19/18 at 18:00 Fentanyl Citrate (Fentanyl 2ml Vial) 25 mcg PRN Q5MIN PRN IV MILD PAIN; Start 05/19/18 at 07:30; Stop 05/19/18 at 18:00 Fentanyl Citrate (Fentanyl 2ml Vial) 50 mcg PRN Q5MIN PRN IV MODERATE TO SEVERE PAIN Last administered on 05/19/18at 10:37; Start 05/19/18 at 07:30; Stop 05/19/18 at 18:00 Morphine Sulfate (Morphine Sulfate) 1 mg PRN Q10MIN PRN IV SEVERE PAIN; Start 05/19/18 at 07:30; Stop 05/19/18 at 18:00 Ringer's Solution 1,000 ml @ 30 mls/hr Q24H IV ; Start 05/19/18 at 07:18; Stop 05/19/18 at 19:17 Lidocaine HCl (Xylocaine-Mpf 1% 2ml Vial) 2 ml 1X PRN PRN ID IV START; Start 05/19/18 at 07:30; Stop 05/19/18 at 18:00 Hydromorphone HCl (Dilaudid) 0.5 mg PRN Q10MIN PRN IV SEV PAIN, Second choice; Start 05/19/18 at 07:30; Stop 05/19/18 at 18:00 Prochlorperazine Edisylate (Compazine) 5 mg PACU PRN PRN IV NAUSEA, MRX1 Last administered on 05/19/18at 08:39; Start 05/19/18 at 07:30; Stop 05/19/18 at 18 :00 Fentanyl Citrate (Fentanyl 2ml Vial) 100 mcg STK-MED ONCE .ROUTE ; Start at 08:27; Stop 05/19/18 at 08:28; Status DC Prochlorperazine Edisylate (Compazine) 10 mg STK-MED ONCE .ROUTE ; Start at 08:27; Stop 05/19/18 at 08:28; Status DC Oxycodone/ Acetaminophen (Percocet 5/325) 1 tab PRN Q4HRS PRN PO MODERATE PAIN ; Start 05/19/18 at 09:00 Oxycodone/ Acetaminophen (Percocet 5/325) 2 tab PRN Q4HRS PRN PO SEVERE PAIN Last administered on 05/19/18at 14:31; Start 05/19/18 at 09:00 Desflurane (Suprane) 30 ml STK-MED ONCE IH ; Start 05/19/18 at 08:55; Stop at 08:56; Status DC Sevoflurane (Ultane) 60 ml STK-MED ONCE IH ; Start 05/19/18 at 08:56; Stop at 08:57; Status DC Sevoflurane (Ultane) 30 ml STK-MED ONCE IH ; Start 05/19/18 at 08:56; Stop at 08:57; Status DC Fentanyl Citrate (Fentanyl 2ml Vial) 100 mcg STK-MED ONCE .ROUTE ; Start at 09:33; Stop 05/19/18 at 09:34; Status DC Allergies Allergies: Coded Allergies: No Known Drug Allergies (Unverified , 05/18/18) ROS Review of System Review of Systems Review of Systems Constitutional: Denies fever or chills [] Eyes: Denies change in visual acuity, redness, or eye pain [] HENT: Denies nasal congestion or sore throat [] Respiratory: Denies cough or shortness of breath [] Cardiovascular: No additional information not addressed in HPI [] GI: Mid abdominal pain, nausea, vomiting. Denies bloody stool. diarrhea x 5 stools [] : Denies dysuria or hematuria [] Musculoskeletal: Denies back pain or joint pain [] Integument: Denies rash or skin lesions [] Neurologic: Denies headache, focal weakness or sensory changes [] Endocrine: Denies polyuria or polydipsia [] 14 pt systems were reviewed and found to be within normal limits, except as documented Gastrointestinal: Yes Nausea, Yes Vomiting, Yes Abdominal Pain Skin: No Dry Skin, No Eczema, No Hair Changes, No Lumps, No Mole Changes, No Mottling, No Nail Changes, No Pruritus, No Rash, No Skin Lesion Changes, No Other, No Acne Physical Exam Physical Exam Physical Exam Physical Exam Constitutional: Well developed, well nourished, no acute distress, non-toxic appearance. [] HENT: Normocephalic, atraumatic, bilateral external ears normal, oropharynx moist, no oral exudates, [] Eyes: PERRLA, EOMI, conjunctiva normal, no discharge. [] Neck: Normal range of motion, no tenderness, supple, no stridor. [] Cardiovascular:Heart rate regular rhythm, no murmur [] Lungs & Thorax: Bilateral breath sounds clear to auscultation [] Abdomen: Bowel sounds normal, soft, Mid and left upper quad tenderness, no masses, no pulsatile masses. [] Skin: Warm, dry, no erythema, no rash. [] Back: No tenderness, no CVA tenderness. [] Extremities: No tenderness, no cyanosis, no clubbing, ROM intact, no edema. [] Neurologic: Alert and oriented X 3, normal motor function, normal sensory function, no focal deficits noted. [] Psychologic: Affect normal, judgement normal, mood normal. [] General: Alert, Oriented X3, Cooperative Rectal Exam: not examined Extremities: No cyanosis Neuro: Cranial nerves 3-12 NL Psych/Mental Status: Mood NL Vitals Vitals Vital Signs Date Time Temp Pulse Resp B/P (MAP) Pulse Ox O2 Delivery O2 Flow Rate FiO2 05/19/18 15:53 95 Room Air 16.0 05/19/18 12:00 90 18 05/19/18 10:23 98.1 98.1 Labs Labs Laboratory Tests Test 05/18/18 20:10 05/18/18 21:17 05/18/18 21:25 White Blood Count 15.5 x10^3/uL (4.0-11.0) Red Blood Count 4.86 x10^6/uL (3.50-5.40) Hemoglobin 13.4 g/dL (12.0-15.5) Hematocrit 38.1 % (36.0-47.0) Mean Corpuscular Volume 78 fL (79-100) Mean Corpuscular Hemoglobin 28 pg (25-35) Mean Corpuscular Hemoglobin Concent 35 g/dL (31-37) Red Cell Distribution Width 14.6 % (11.5-14.5) Platelet Count 303 x10^3/uL (140-400) Neutrophils (%) (Auto) 76 % (31-73) Lymphocytes (%) (Auto) 15 % (24-48) Monocytes (%) (Auto) 8 % (0-9) Eosinophils (%) (Auto) 0 % (0-3) Basophils (%) (Auto) 1 % (0-3) Neutrophils # (Auto) 11.8 x10^3uL (1.8-7.7) Lymphocytes # (Auto) 2.3 x10^3/uL (1.0-4.8) Monocytes # (Auto) 1.2 x10^3/uL (0.0-1.1) Eosinophils # (Auto) 0.1 x10^3/uL (0.0-0.7) Basophils # (Auto) 0.1 x10^3/uL (0.0-0.2) Sodium Level 140 mmol/L (136-145) Potassium Level 3.4 mmol/L (3.5-5.1) Chloride Level 103 mmol/L (98-107) Carbon Dioxide Level 28 mmol/L (21-32) Anion Gap 9 (6-14) Blood Urea Nitrogen 8 mg/dL (7-20) Creatinine 0.9 mg/dL (0.6-1.0) Estimated GFR (Cockcroft-Gault) 92.3 BUN/Creatinine Ratio 9 (6-20) Glucose Level 99 mg/dL (70-99) Calcium Level 9.3 mg/dL (8.5-10.1) Total Bilirubin 1.1 mg/dL (0.2-1.0) Aspartate Amino Transf (AST/SGOT) 10 U/L (15-37) Alanine Aminotransferase (ALT/SGPT) 17 U/L (14-59) Alkaline Phosphatase 102 U/L (46-116) Total Protein 8.0 g/dL (6.4-8.2) Albumin 3.5 g/dL (3.4-5.0) Albumin/Globulin Ratio 0.8 (1.0-1.7) Lipase 83 U/L (73-393) Urine Collection Type Void Urine Color Maggi Urine Clarity Clear Urine pH 7.0 Urine Specific [place]el >=1.030 Urine Protein Negative mg/dL (NEG-TRACE) Urine Glucose (UA) Negative mg/dL (NEG) Urine Ketones (Stick) 40 mg/dL (NEG) Urine Blood Negative (NEG) Urine Nitrite Negative (NEG) Urine Bilirubin Negative (NEG) Urine Urobilinogen Dipstick 0.2 mg/dL (0.2 mg/dL) Urine Leukocyte Esterase Small (NEG) Urine RBC Occ /HPF (0-2) Urine WBC 1-4 /HPF (0-4) Urine Squamous Epithelial Cells Mod /LPF Urine Bacteria Moderate /HPF (0-FEW) Urine Mucus Mod /LPF Bedside Urine HCG, Qualitative Hcg negative (Negative) Laboratory Tests Test 05/18/18 20:10 05/18/18 21:17 05/18/18 21:25 White Blood Count 15.5 x10^3/uL (4.0-11.0) Red Blood Count 4.86 x10^6/uL (3.50-5.40) Hemoglobin 13.4 g/dL (12.0-15.5) Hematocrit 38.1 % (36.0-47.0) Mean Corpuscular Volume 78 fL (79-100) Mean Corpuscular Hemoglobin 28 pg (25-35) Mean Corpuscular Hemoglobin Concent 35 g/dL (31-37) Red Cell Distribution Width 14.6 % (11.5-14.5) Platelet Count 303 x10^3/uL (140-400) Neutrophils (%) (Auto) 76 % (31-73) Lymphocytes (%) (Auto) 15 % (24-48) Monocytes (%) (Auto) 8 % (0-9) Eosinophils (%) (Auto) 0 % (0-3) Basophils (%) (Auto) 1 % (0-3) Neutrophils # (Auto) 11.8 x10^3uL (1.8-7.7) Lymphocytes # (Auto) 2.3 x10^3/uL (1.0-4.8) Monocytes # (Auto) 1.2 x10^3/uL (0.0-1.1) Eosinophils # (Auto) 0.1 x10^3/uL (0.0-0.7) Basophils # (Auto) 0.1 x10^3/uL (0.0-0.2) Sodium Level 140 mmol/L (136-145) Potassium Level 3.4 mmol/L (3.5-5.1) Chloride Level 103 mmol/L (98-107) Carbon Dioxide Level 28 mmol/L (21-32) Anion Gap 9 (6-14) Blood Urea Nitrogen 8 mg/dL (7-20) Creatinine 0.9 mg/dL (0.6-1.0) Estimated GFR (Cockcroft-Gault) 92.3 BUN/Creatinine Ratio 9 (6-20) Glucose Level 99 mg/dL (70-99) Calcium Level 9.3 mg/dL (8.5-10.1) Total Bilirubin 1.1 mg/dL (0.2-1.0) Aspartate Amino Transf (AST/SGOT) 10 U/L (15-37) Alanine Aminotransferase (ALT/SGPT) 17 U/L (14-59) Alkaline Phosphatase 102 U/L (46-116) Total Protein 8.0 g/dL (6.4-8.2) Albumin 3.5 g/dL (3.4-5.0) Albumin/Globulin Ratio 0.8 (1.0-1.7) Lipase 83 U/L (73-393) Urine Collection Type Void Urine Color Maggi Urine Clarity Clear Urine pH 7.0 Urine Specific [place] >=1.030 Urine Protein Negative mg/dL (NEG-TRACE) Urine Glucose (UA) Negative mg/dL (NEG) Urine Ketones (Stick) 40 mg/dL (NEG) Urine Blood Negative (NEG) Urine Nitrite Negative (NEG) Urine Bilirubin Negative (NEG) Urine Urobilinogen Dipstick 0.2 mg/dL (0.2 mg/dL) Urine Leukocyte Esterase Small (NEG) Urine RBC Occ /HPF (0-2) Urine WBC 1-4 /HPF (0-4) Urine Squamous Epithelial Cells Mod /LPF Urine Bacteria Moderate /HPF (0-FEW) Urine Mucus Mod /LPF Bedside Urine HCG, Qualitative Hcg negative (Negative) VTE Prophylaxis Ordered VTE Prophylaxis Devices: Yes VTE Pharmacological Prophylaxi: Yes Assessment/Plan Assessment/Plan impression 1. acute appendicitis 2. intractable n/v 3. hypertension 4. obesity plan NPO to OR Surgery following BP CONTROL IV ZOSYN PRN IV FLUID SUPPORT LUCIE CHOI MD May 19, 2018 16:05
[2018-05-20] MEDS: PIPERACILLIN/TAZOBACTAM 3.375 GM in IV NORMAL SALINE 50ML 50 ML IV SCH ×4 (00:20→18:39)
[2018-05-20] MEDS: oxyCODONE/APAP 5/325 1 TAB TABLET PO PRN ×5 (00:31→22:00)
[2018-05-20 03:26] VITALS: BP 133/48
[2018-05-20 07:00] VITALS: BP 121/61
[2018-05-20 11:00] VITALS: BP 122/67
--- NOTE | 2018-05-20 12:00 | PDOC ---
PROGRESS NOTES Subjective Subjective doing ok, some incisional pain Objective Objective Vital Signs Date Time Temp Pulse Resp B/P (MAP) Pulse Ox O2 Delivery O2 Flow Rate FiO2 05/20/18 11:13 Room Air 05/20/18 11:00 95.9 94 16 122/67 (85) 99 95.9 05/20/18 06:19 16.0 Intake and Output 05/20/18 07:00 Intake Total 1350 ml Output Total 0 ml Balance 1350 ml Intake Oral 1350 ml Output Urine Total 0 ml # Voids 6 Physical Exam Abdomen: Soft Assessment Assessment Problems Medical Problems: (1) Appendicitis Status: Acute Plan Plan of Care POD 1, ok to discharge; FU with Dr Neville in 2 weeks in office, call for appt [phone]; pain script in chart Comment Review of Relevant I have reviewed the following items rachel (where applicable) has been applied. Labs Laboratory Tests Test 05/18/18 20:10 05/18/18 21:17 05/18/18 21:25 White Blood Count 15.5 x10^3/uL (4.0-11.0) Red Blood Count 4.86 x10^6/uL (3.50-5.40) Hemoglobin 13.4 g/dL (12.0-15.5) Hematocrit 38.1 % (36.0-47.0) Mean Corpuscular Volume 78 fL (79-100) Mean Corpuscular Hemoglobin 28 pg (25-35) Mean Corpuscular Hemoglobin Concent 35 g/dL (31-37) Red Cell Distribution Width 14.6 % (11.5-14.5) Platelet Count 303 x10^3/uL (140-400) Neutrophils (%) (Auto) 76 % (31-73) Lymphocytes (%) (Auto) 15 % (24-48) Monocytes (%) (Auto) 8 % (0-9) Eosinophils (%) (Auto) 0 % (0-3) Basophils (%) (Auto) 1 % (0-3) Neutrophils # (Auto) 11.8 x10^3uL (1.8-7.7) Lymphocytes # (Auto) 2.3 x10^3/uL (1.0-4.8) Monocytes # (Auto) 1.2 x10^3/uL (0.0-1.1) Eosinophils # (Auto) 0.1 x10^3/uL (0.0-0.7) Basophils # (Auto) 0.1 x10^3/uL (0.0-0.2) Sodium Level 140 mmol/L (136-145) Potassium Level 3.4 mmol/L (3.5-5.1) Chloride Level 103 mmol/L (98-107) Carbon Dioxide Level 28 mmol/L (21-32) Anion Gap 9 (6-14) Blood Urea Nitrogen 8 mg/dL (7-20) Creatinine 0.9 mg/dL (0.6-1.0) Estimated GFR (Cockcroft-Gault) 92.3 BUN/Creatinine Ratio 9 (6-20) Glucose Level 99 mg/dL (70-99) Calcium Level 9.3 mg/dL (8.5-10.1) Total Bilirubin 1.1 mg/dL (0.2-1.0) Aspartate Amino Transf (AST/SGOT) 10 U/L (15-37) Alanine Aminotransferase (ALT/SGPT) 17 U/L (14-59) Alkaline Phosphatase 102 U/L (46-116) Total Protein 8.0 g/dL (6.4-8.2) Albumin 3.5 g/dL (3.4-5.0) Albumin/Globulin Ratio 0.8 (1.0-1.7) Lipase 83 U/L (73-393) Urine Collection Type Void Urine Color Maggi Urine Clarity Clear Urine pH 7.0 Urine Specific [place] >=1.030 Urine Protein Negative mg/dL (NEG-TRACE) Urine Glucose (UA) Negative mg/dL (NEG) Urine Ketones (Stick) 40 mg/dL (NEG) Urine Blood Negative (NEG) Urine Nitrite Negative (NEG) Urine Bilirubin Negative (NEG) Urine Urobilinogen Dipstick 0.2 mg/dL (0.2 mg/dL) Urine Leukocyte Esterase Small (NEG) Urine RBC Occ /HPF (0-2) Urine WBC 1-4 /HPF (0-4) Urine Squamous Epithelial Cells Mod /LPF Urine Bacteria Moderate /HPF (0-FEW) Urine Mucus Mod /LPF Bedside Urine HCG, Qualitative Hcg negative (Negative) Medications Current Medications Ondansetron HCl (Zofran) 4 mg 1X ONCE IM ; Start 05/18/18 at 21:15; Stop at 21:16; Status Cancel Dicyclomine HCl (Bentyl) 10 mg 1X ONCE IM Last administered on 05/18/18at 21: 13; Start 05/18/18 at 21:15; Stop 05/18/18 at 21:16; Status DC Fentanyl Citrate (Fentanyl 2ml Vial) 50 mcg 1X ONCE IV Last administered on at 21:05; Start 05/18/18 at 21:15; Stop 05/18/18 at 21:16; Status DC Sodium Chloride 1,000 ml @ 1,000 mls/hr 1X ONCE IV Last administered on 05/18at 21:04; Start 05/18/18 at 21:00; Stop 05/18/18 at 21:59; Status DC Ondansetron HCl (Zofran) 4 mg 1X ONCE IV Last administered on 05/18/18at 21:05 ; Start 05/18/18 at 21:30; Stop 05/18/18 at 21:31; Status DC Iohexol (Omnipaque 300 Mg/ml) 75 ml 1X ONCE IV Last administered on at 21:15; Start 05/18/18 at 21:15; Stop 05/18/18 at 21:16; Status DC Info (CONTRAST GIVEN -- Rx MONITORING) 1 each PRN DAILY PRN MC SEE COMMENTS; Start 05/18/18 at 21:15; Stop 05/20/18 at 21:14 Piperacillin Sod/ Tazobactam Sod 3.375 gm/Sodium Chloride 50 ml @ 100 mls/hr Q6HRS IV Last administered on 05/20/18at 11:07; Start 05/19/18 at 06:00 Ondansetron HCl (Zofran) 4 mg PRN Q8HRS PRN IV NAUSEA/VOMITING; Start at 23:15; Stop 05/19/18 at 23:14; Status DC Fentanyl Citrate (Fentanyl 2ml Vial) 50 mcg PRN Q2HR PRN IV PAIN Last administered on 05/19/18at 13:20; Start 05/18/18 at 23:15; Stop 05/19/18 at 23 :14; Status DC Sodium Chloride 1,000 ml @ 80 mls/hr [id number] IV Last administered on at 11:45; Start 05/18/18 at 23:15; Stop 05/19/18 at 23:14; Status DC Acetaminophen (Tylenol) 650 mg PRN Q4HRS PRN PO FEVER; Start 05/18/18 at 23:15 ; Stop 05/19/18 at 23:14; Status DC Ondansetron HCl (Zofran) 4 mg 1X ONCE IV Last administered on 05/19/18at 00:43 ; Start 05/18/18 at 23:30; Stop 05/18/18 at 23:31; Status DC Fentanyl Citrate (Fentanyl 2ml Vial) 50 mcg 1X ONCE IV Last administered on at 23:54; Start 05/18/18 at 23:30; Stop 05/18/18 at 23:31; Status DC Piperacillin Sod/ Tazobactam Sod 3.375 gm/Sodium Chloride 50 ml @ 100 mls/hr ONCE ONCE IV Last administered on 05/18/18at 23:55; Start 05/18/18 at 23:30; Stop 05/18/18 at 23:59; Status DC Bupivacaine HCl/ Epinephrine Bitart (Sensorcain-Mpf Epi 0.5%-1:177368) 30 ml STK -MED ONCE .ROUTE Last administered on 05/19/18at 07:52; Start 05/19/18 at 06: 11; Stop 05/19/18 at 07:12; Status DC Neostigmine Methylsulfate (Bloxiverz) 10 mg STK-MED ONCE .ROUTE ; Start at 07:16; Stop 05/19/18 at 07:17; Status DC Fentanyl Citrate (Fentanyl 2ml Vial) 100 mcg STK-MED ONCE .ROUTE ; Start at 07:16; Stop 05/19/18 at 07:17; Status DC Glycopyrrolate (Robinul) 1 mg STK-MED ONCE .ROUTE ; Start 05/19/18 at 07:16; Stop 05/19/18 at 07:17; Status DC Rocuronium [place] (Zemuron) 50 mg STK-MED ONCE .ROUTE ; Start 05/19/18 at 07: 16; Stop 05/19/18 at 07:17; Status DC Desflurane (Suprane) 30 ml STK-MED ONCE IH ; Start 05/19/18 at 07:17; Stop at 07:18; Status DC Propofol 20 ml @ As Directed STK-MED ONCE IV ; Start 05/19/18 at 07:17; Stop 05/19/18 at 07:18; Status DC Dexamethasone Sodium Phosphate (Decadron) 20 mg STK-MED ONCE .ROUTE ; Start at 07:17; Stop 05/19/18 at 07:18; Status DC Lidocaine HCl (Lidocaine Pf 2% Vial) 5 ml STK-MED ONCE .ROUTE ; Start 05/19/18 at 07:18; Stop 05/19/18 at 07:19; Status DC Ondansetron HCl (Zofran) 4 mg STK-MED ONCE .ROUTE ; Start 05/19/18 at 07:18; Stop 05/19/18 at 07:19; Status DC Ondansetron HCl (Zofran) 4 mg PRN Q6HRS PRN IV NAUSEA/VOMITING; Start at 07:30; Stop 05/19/18 at 18:00; Status DC Fentanyl Citrate (Fentanyl 2ml Vial) 25 mcg PRN Q5MIN PRN IV MILD PAIN; Start 05/19/18 at 07:30; Stop 05/19/18 at 18:00; Status DC Fentanyl Citrate (Fentanyl 2ml Vial) 50 mcg PRN Q5MIN PRN IV MODERATE TO SEVERE PAIN Last administered on 05/19/18at 10:37; Start 05/19/18 at 07:30; Stop 05/19/18 at 18:00; Status DC Morphine Sulfate (Morphine Sulfate) 1 mg PRN Q10MIN PRN IV SEVERE PAIN; Start 05/19/18 at 07:30; Stop 05/19/18 at 18:00; Status DC Ringer's Solution 1,000 ml @ 30 mls/hr Q24H IV ; Start 05/19/18 at 07:18; Stop 05/19/18 at 19:17; Status DC Lidocaine HCl (Xylocaine-Mpf 1% 2ml Vial) 2 ml 1X PRN PRN ID IV START; Start 05/19/18 at 07:30; Stop 05/19/18 at 18:00; Status DC Hydromorphone HCl (Dilaudid) 0.5 mg PRN Q10MIN PRN IV SEV PAIN, Second choice; Start 05/19/18 at 07:30; Stop 05/19/18 at 18:00; Status DC Prochlorperazine Edisylate (Compazine) 5 mg PACU PRN PRN IV NAUSEA, MRX1 Last administered on 05/19/18at 08:39; Start 05/19/18 at 07:30; Stop 05/19/18 at 18 :00; Status DC Fentanyl Citrate (Fentanyl 2ml Vial) 100 mcg STK-MED ONCE .ROUTE ; Start at 08:27; Stop 05/19/18 at 08:28; Status DC Prochlorperazine Edisylate (Compazine) 10 mg STK-MED ONCE .ROUTE ; Start at 08:27; Stop 05/19/18 at 08:28; Status DC Oxycodone/ Acetaminophen (Percocet 5/325) 1 tab PRN Q4HRS PRN PO MODERATE PAIN ; Start 05/19/18 at 09:00 Oxycodone/ Acetaminophen (Percocet 5/325) 2 tab PRN Q4HRS PRN PO SEVERE PAIN Last administered on 05/20/18at 11:13; Start 05/19/18 at 09:00 Desflurane (Suprane) 30 ml STK-MED ONCE IH ; Start 05/19/18 at 08:55; Stop at 08:56; Status DC Sevoflurane (Ultane) 60 ml STK-MED ONCE IH ; Start 05/19/18 at 08:56; Stop at 08:57; Status DC Sevoflurane (Ultane) 30 ml STK-MED ONCE IH ; Start 05/19/18 at 08:56; Stop at 08:57; Status DC Fentanyl Citrate (Fentanyl 2ml Vial) 100 mcg STK-MED ONCE .ROUTE ; Start at 09:33; Stop 05/19/18 at 09:34; Status DC Vitals/I & O Vital Sign - Last 24 Hours 05/19/18 05/19/18 05/19/18 05/19/18 12:00 13:20 13:50 14:31 Pulse 90 Resp 18 B/P (MAP) Pulse Ox 100 95 95 95 O2 Delivery Room Air Room Air Room Air Room Air 05/19/18 05/19/18 05/19/18 05/19/18 15:00 15:53 18:16 20:49 Temp 98.4 98.1 98.4 98.1 Pulse 94 79 Resp 18 18 B/P (MAP) 132/77 (95) 122/74 (90) Pulse Ox 98 95 97 O2 Delivery Room Air Room Air Room Air O2 Flow Rate 16.0 05/19/18 05/20/18 05/20/18 05/20/18 23:09 00:31 01:31 03:26 Temp 97.8 98.1 97.8 98.1 Pulse 76 69 Resp 16 18 20 18 B/P (MAP) 132/64 (86) 133/48 (76) Pulse Ox 97 97 96 96 O2 Delivery Room Air Room Air Room Air 05/20/18 05/20/18 05/20/18 05/20/18 06:19 07:00 07:30 07:30 Temp 96.6 96.6 Pulse 81 Resp 20 16 B/P (MAP) 121/61 (81) Pulse Ox 96 97 O2 Delivery Room Air Room Air Room Air Room Air O2 Flow Rate 16.0 05/20/18 05/20/18 11:00 11:13 Temp 95.9 95.9 Pulse 94 Resp 16 B/P (MAP) 122/67 (85) Pulse Ox 99 O2 Delivery Room Air Room Air Intake and Output 05/19/18 05/19/18 05/20/18 15:00 23:00 07:00 Intake Total 10 ml 800 ml 540 ml Output Total 0 ml Balance 10 ml 800 ml 540 ml HERMILA NEVILLE MD May 20, 2018 12:00
--- NOTE | 2018-05-20 14:09 | PATHOLOGY ---
[facility] Accession Number: [id number] . 01 Material submitted: . APPENDIX . 01 Clinical history: . Acute appendicitis . 02 Diagnosis: Appendix, laparoscopic appendectomy: - Acute appendicitis. - Appendiceal diverticulum. [facility]/05/20/2018 . 02 Comment: There is no evidence of rupture. (JPM:[facility] 05/20/2018) . 02 Electronically signed: . Richard Little MD, Pathologist NPI- [id number] . 01 Gross description: . The specimen is received in formalin, labeled "Ryan, Snow, appendix", is an appendix measuring 5.7 cm in length and up to 1.2 cm in diameter with abundantly attached felix brown, indurated mesoappendix measuring 5.0 x 2.0 x 1.2 cm. The serosa is felix-pink partially hemorrhagic with no discrete perforation. The proximal resection margin is closed by a linear staple line measuring 1.8 cm in length with an average 0.2 cm width. The staple line is removed and the adjacent serosa is inked black. The lumen is dilated and filled with pink-vazquez purulent material and no discrete fecalith. The wall measures up to 0.4 cm. No discrete masses are identified. [employer] tissue is submitted in [id number]. ([facility]WS; 05/19/2018) SHS/SHS . 02 Pathologist provided ICD-10: K35.80, K38.2 . 02 CPT . 998282 Specimen Comment: A courtesy copy of this report has been sent to Specimen Comment: [phone], , . Specimen Comment: Report sent to ,DR MORRIS / DR VALERIO Specimen Comment: A duplicate report has been generated due to demographic updates. Performed at: 01 [facility] [address] [facility] [address], [place] [id number] MD Esdras Wells MD Phone: [phone] Performed at: 02 [facility] [place] [address] [place], [place] [id number] MD Richard Little MD Phone: [phone]
--- NOTE | 2018-05-20 14:28 | PDOC ---
PROGRESS NOTES Chief Complaint Chief Complaint Appendectomy post-op day 1 Acute abdominal pain Acute appendicitis Intractable n/v HTN Obesity Smoker History of Present Illness History of Present Illness Pt seen and examined post-op day 1 Pt sitting upright in bed, pleasant, talkative and recovering well from surgery Discussed plan with pt Vitals Vitals Vital Signs Date Time Temp Pulse Resp B/P (MAP) Pulse Ox O2 Delivery O2 Flow Rate FiO2 05/20/18 12:11 Room Air 05/20/18 11:00 95.9 94 16 122/67 (85) 99 95.9 05/20/18 06:19 16.0 Physical Exam Physical Exam HEENT: SOPHIA b/l, mucous membranes moist General: Alert, Oriented X3, Cooperative, No acute distress Heart: Regular rate, Normal S1, Normal S2 Lungs: Clear Abdomen: Other (Abd mildly tender. Post-op incisions clean, dry and intact) Extremities: No cyanosis, No edema Skin: No rashes, No breakdown Review of Systems Review of Systems C/o mild abdominal/incisional pain and fatigue but otherwise states is felling well Denies chest pain, SOB Assessment and Plan Assessmemt and Plan Problems Medical Problems: (1) Appendicitis Status: Acute Assessment: Appendectomy post-op day 1 Acute abdominal pain Acute appendicitis Intractable n/v HTN Obesity Smoker Plan: IV abx IVF Labs PRN pain meds PRN antiemetics Wound care Advance diet as tolerated Possible d/c tomorrow DVT ppx Comment Review of Relevant I have reviewed the following items rachel (where applicable) has been applied. Labs Laboratory Tests Test 05/18/18 20:10 05/18/18 21:17 05/18/18 21:25 White Blood Count 15.5 x10^3/uL (4.0-11.0) Red Blood Count 4.86 x10^6/uL (3.50-5.40) Hemoglobin 13.4 g/dL (12.0-15.5) Hematocrit 38.1 % (36.0-47.0) Mean Corpuscular Volume 78 fL (79-100) Mean Corpuscular Hemoglobin 28 pg (25-35) Mean Corpuscular Hemoglobin Concent 35 g/dL (31-37) Red Cell Distribution Width 14.6 % (11.5-14.5) Platelet Count 303 x10^3/uL (140-400) Neutrophils (%) (Auto) 76 % (31-73) Lymphocytes (%) (Auto) 15 % (24-48) Monocytes (%) (Auto) 8 % (0-9) Eosinophils (%) (Auto) 0 % (0-3) Basophils (%) (Auto) 1 % (0-3) Neutrophils # (Auto) 11.8 x10^3uL (1.8-7.7) Lymphocytes # (Auto) 2.3 x10^3/uL (1.0-4.8) Monocytes # (Auto) 1.2 x10^3/uL (0.0-1.1) Eosinophils # (Auto) 0.1 x10^3/uL (0.0-0.7) Basophils # (Auto) 0.1 x10^3/uL (0.0-0.2) Sodium Level 140 mmol/L (136-145) Potassium Level 3.4 mmol/L (3.5-5.1) Chloride Level 103 mmol/L (98-107) Carbon Dioxide Level 28 mmol/L (21-32) Anion Gap 9 (6-14) Blood Urea Nitrogen 8 mg/dL (7-20) Creatinine 0.9 mg/dL (0.6-1.0) Estimated GFR (Cockcroft-Gault) 92.3 BUN/Creatinine Ratio 9 (6-20) Glucose Level 99 mg/dL (70-99) Calcium Level 9.3 mg/dL (8.5-10.1) Total Bilirubin 1.1 mg/dL (0.2-1.0) Aspartate Amino Transf (AST/SGOT) 10 U/L (15-37) Alanine Aminotransferase (ALT/SGPT) 17 U/L (14-59) Alkaline Phosphatase 102 U/L (46-116) Total Protein 8.0 g/dL (6.4-8.2) Albumin 3.5 g/dL (3.4-5.0) Albumin/Globulin Ratio 0.8 (1.0-1.7) Lipase 83 U/L (73-393) Urine Collection Type Void Urine Color Maggi Urine Clarity Clear Urine pH 7.0 Urine Specific [place] >=1.030 Urine Protein Negative mg/dL (NEG-TRACE) Urine Glucose (UA) Negative mg/dL (NEG) Urine Ketones (Stick) 40 mg/dL (NEG) Urine Blood Negative (NEG) Urine Nitrite Negative (NEG) Urine Bilirubin Negative (NEG) Urine Urobilinogen Dipstick 0.2 mg/dL (0.2 mg/dL) Urine Leukocyte Esterase Small (NEG) Urine RBC Occ /HPF (0-2) Urine WBC 1-4 /HPF (0-4) Urine Squamous Epithelial Cells Mod /LPF Urine Bacteria Moderate /HPF (0-FEW) Urine Mucus Mod /LPF Bedside Urine HCG, Qualitative Hcg negative (Negative) Medications Current Medications Ondansetron HCl (Zofran) 4 mg 1X ONCE IM ; Start 05/18/18 at 21:15; Stop at 21:16; Status Cancel Dicyclomine HCl (Bentyl) 10 mg 1X ONCE IM Last administered on 05/18/18at 21: 13; Start 05/18/18 at 21:15; Stop 05/18/18 at 21:16; Status DC Fentanyl Citrate (Fentanyl 2ml Vial) 50 mcg 1X ONCE IV Last administered on at 21:05; Start 05/18/18 at 21:15; Stop 05/18/18 at 21:16; Status DC Sodium Chloride 1,000 ml @ 1,000 mls/hr 1X ONCE IV Last administered on 05/18at 21:04; Start 05/18/18 at 21:00; Stop 05/18/18 at 21:59; Status DC Ondansetron HCl (Zofran) 4 mg 1X ONCE IV Last administered on 05/18/18at 21:05 ; Start 05/18/18 at 21:30; Stop 05/18/18 at 21:31; Status DC Iohexol (Omnipaque 300 Mg/ml) 75 ml 1X ONCE IV Last administered on at 21:15; Start 05/18/18 at 21:15; Stop 05/18/18 at 21:16; Status DC Info (CONTRAST GIVEN -- Rx MONITORING) 1 each PRN DAILY PRN MC SEE COMMENTS; Start 05/18/18 at 21:15; Stop 05/20/18 at 21:14 Piperacillin Sod/ Tazobactam Sod 3.375 gm/Sodium Chloride 50 ml @ 100 mls/hr Q6HRS IV Last administered on 05/20/18at 11:07; Start 05/19/18 at 06:00 Ondansetron HCl (Zofran) 4 mg PRN Q8HRS PRN IV NAUSEA/VOMITING; Start at 23:15; Stop 05/19/18 at 23:14; Status DC Fentanyl Citrate (Fentanyl 2ml Vial) 50 mcg PRN Q2HR PRN IV PAIN Last administered on 05/19/18at 13:20; Start 05/18/18 at 23:15; Stop 05/19/18 at 23 :14; Status DC Sodium Chloride 1,000 ml @ 80 mls/hr [id number] IV Last administered on at 11:45; Start 05/18/18 at 23:15; Stop 05/19/18 at 23:14; Status DC Acetaminophen (Tylenol) 650 mg PRN Q4HRS PRN PO FEVER; Start 05/18/18 at 23:15 ; Stop 05/19/18 at 23:14; Status DC Ondansetron HCl (Zofran) 4 mg 1X ONCE IV Last administered on 05/19/18at 00:43 ; Start 05/18/18 at 23:30; Stop 05/18/18 at 23:31; Status DC Fentanyl Citrate (Fentanyl 2ml Vial) 50 mcg 1X ONCE IV Last administered on at 23:54; Start 05/18/18 at 23:30; Stop 05/18/18 at 23:31; Status DC Piperacillin Sod/ Tazobactam Sod 3.375 gm/Sodium Chloride 50 ml @ 100 mls/hr ONCE ONCE IV Last administered on 05/18/18at 23:55; Start 05/18/18 at 23:30; Stop 05/18/18 at 23:59; Status DC Bupivacaine HCl/ Epinephrine Bitart (Sensorcain-Mpf Epi 0.5%-1:538758) 30 ml STK -MED ONCE .ROUTE Last administered on 05/19/18at 07:52; Start 05/19/18 at 06: 11; Stop 05/19/18 at 07:12; Status DC Neostigmine Methylsulfate (Bloxiverz) 10 mg STK-MED ONCE .ROUTE ; Start at 07:16; Stop 05/19/18 at 07:17; Status DC Fentanyl Citrate (Fentanyl 2ml Vial) 100 mcg STK-MED ONCE .ROUTE ; Start at 07:16; Stop 05/19/18 at 07:17; Status DC Glycopyrrolate (Robinul) 1 mg STK-MED ONCE .ROUTE ; Start 05/19/18 at 07:16; Stop 05/19/18 at 07:17; Status DC Rocuronium [place] (Zemuron) 50 mg STK-MED ONCE .ROUTE ; Start 05/19/18 at 07: 16; Stop 05/19/18 at 07:17; Status DC Desflurane (Suprane) 30 ml STK-MED ONCE IH ; Start 05/19/18 at 07:17; Stop at 07:18; Status DC Propofol 20 ml @ As Directed STK-MED ONCE IV ; Start 05/19/18 at 07:17; Stop 05/19/18 at 07:18; Status DC Dexamethasone Sodium Phosphate (Decadron) 20 mg STK-MED ONCE .ROUTE ; Start at 07:17; Stop 05/19/18 at 07:18; Status DC Lidocaine HCl (Lidocaine Pf 2% Vial) 5 ml STK-MED ONCE .ROUTE ; Start 05/19/18 at 07:18; Stop 05/19/18 at 07:19; Status DC Ondansetron HCl (Zofran) 4 mg STK-MED ONCE .ROUTE ; Start 05/19/18 at 07:18; Stop 05/19/18 at 07:19; Status DC Ondansetron HCl (Zofran) 4 mg PRN Q6HRS PRN IV NAUSEA/VOMITING; Start at 07:30; Stop 05/19/18 at 18:00; Status DC Fentanyl Citrate (Fentanyl 2ml Vial) 25 mcg PRN Q5MIN PRN IV MILD PAIN; Start 05/19/18 at 07:30; Stop 05/19/18 at 18:00; Status DC Fentanyl Citrate (Fentanyl 2ml Vial) 50 mcg PRN Q5MIN PRN IV MODERATE TO SEVERE PAIN Last administered on 05/19/18at 10:37; Start 05/19/18 at 07:30; Stop 05/19/18 at 18:00; Status DC Morphine Sulfate (Morphine Sulfate) 1 mg PRN Q10MIN PRN IV SEVERE PAIN; Start 05/19/18 at 07:30; Stop 05/19/18 at 18:00; Status DC Ringer's Solution 1,000 ml @ 30 mls/hr Q24H IV ; Start 05/19/18 at 07:18; Stop 05/19/18 at 19:17; Status DC Lidocaine HCl (Xylocaine-Mpf 1% 2ml Vial) 2 ml 1X PRN PRN ID IV START; Start 05/19/18 at 07:30; Stop 05/19/18 at 18:00; Status DC Hydromorphone HCl (Dilaudid) 0.5 mg PRN Q10MIN PRN IV SEV PAIN, Second choice; Start 05/19/18 at 07:30; Stop 05/19/18 at 18:00; Status DC Prochlorperazine Edisylate (Compazine) 5 mg PACU PRN PRN IV NAUSEA, MRX1 Last administered on 05/19/18at 08:39; Start 05/19/18 at 07:30; Stop 05/19/18 at 18 :00; Status DC Fentanyl Citrate (Fentanyl 2ml Vial) 100 mcg STK-MED ONCE .ROUTE ; Start at 08:27; Stop 05/19/18 at 08:28; Status DC Prochlorperazine Edisylate (Compazine) 10 mg STK-MED ONCE .ROUTE ; Start at 08:27; Stop 05/19/18 at 08:28; Status DC Oxycodone/ Acetaminophen (Percocet 5/325) 1 tab PRN Q4HRS PRN PO MODERATE PAIN ; Start 05/19/18 at 09:00 Oxycodone/ Acetaminophen (Percocet 5/325) 2 tab PRN Q4HRS PRN PO SEVERE PAIN Last administered on 05/20/18at 11:13; Start 05/19/18 at 09:00 Desflurane (Suprane) 30 ml STK-MED ONCE IH ; Start 05/19/18 at 08:55; Stop at 08:56; Status DC Sevoflurane (Ultane) 60 ml STK-MED ONCE IH ; Start 05/19/18 at 08:56; Stop at 08:57; Status DC Sevoflurane (Ultane) 30 ml STK-MED ONCE IH ; Start 05/19/18 at 08:56; Stop at 08:57; Status DC Fentanyl Citrate (Fentanyl 2ml Vial) 100 mcg STK-MED ONCE .ROUTE ; Start at 09:33; Stop 05/19/18 at 09:34; Status DC Vitals/I & O Vital Sign - Last 24 Hours 05/19/18 05/19/18 05/19/18 05/19/18 14:31 15:00 15:53 18:16 Temp 98.4 98.4 Pulse 94 Resp 18 B/P (MAP) 132/77 (95) Pulse Ox 95 98 95 O2 Delivery Room Air Room Air Room Air O2 Flow Rate 16.0 05/19/18 05/19/18 05/20/18 05/20/18 20:49 23:09 00:31 01:31 Temp 98.1 97.8 98.1 97.8 Pulse 79 76 Resp 18 16 18 20 B/P (MAP) 122/74 (90) 132/64 (86) Pulse Ox 97 97 97 96 O2 Delivery Room Air Room Air Room Air 05/20/18 05/20/18 05/20/18 05/20/18 03:26 06:19 07:00 07:30 Temp 98.1 96.6 98.1 96.6 Pulse 69 81 Resp 18 20 16 B/P (MAP) 133/48 (76) 121/61 (81) Pulse Ox 96 96 97 O2 Delivery Room Air Room Air Room Air Room Air O2 Flow Rate 16.0 05/20/18 05/20/18 05/20/18 11:00 11:13 12:11 Temp 95.9 95.9 Pulse 94 Resp 16 B/P (MAP) 122/67 (85) Pulse Ox 99 O2 Delivery Room Air Room Air Room Air Intake and Output 05/19/18 05/19/18 05/20/18 15:00 23:00 07:00 Intake Total 10 ml 800 ml 540 ml Output Total 0 ml Balance 10 ml 800 ml 540 ml DL MAE III DO May 20, 2018 14:28
[2018-05-20 15:00] VITALS: BP 112/62
[2018-05-20 19:00] VITALS: BP 135/83
[2018-05-20] MEDS: LACTOBACILLUS RHAMNOSUS GG 1 CAPSULE. PO SCH (21:59)
[2018-05-20 23:00] VITALS: BP 135/71
[2018-05-21] MEDS: PIPERACILLIN/TAZOBACTAM 3.375 GM in IV NORMAL SALINE 50ML 50 ML IV SCH ×3 (01:13→12:00)
[2018-05-21 03:00] VITALS: BP 97/48
[2018-05-21 05:06] LABS: BASO # 0.1 x10^3/uL (0.0-0.2); BASO % 1 % (0-3); EOS # 0.5 x10^3/uL (0.0-0.7); EOS % 4 % (0-3); HEMATOCRIT 33.5 % (36.0-47.0); HEMOGLOBIN 11.8 g/dL (12.0-15.5); LYMPH # 3.8 x10^3/uL (1.0-4.8); LYMPH % 32 % (24-48); MEAN CORPUSCULAR HEMOGLOBIN 28 pg (25-35); MEAN CORPUSCULAR HGB CONC 35 g/dL (31-37); MEAN CORPUSCULAR VOLUME 79 fL (79-100); MONO # 1.3 x10^3/uL (0.0-1.1); MONO % 11 % (0-9); NEUT # 6.2 x10^3uL (1.8-7.7); NEUT % 52 % (31-73); PLATELET COUNT 270 x10^3/uL (140-400); RED BLOOD COUNT 4.24 x10^6/uL (3.50-5.40); RED CELL DISTRIBUTION WIDTH 14.7 % (11.5-14.5); WHITE BLOOD COUNT 11.9 x10^3/uL (4.0-11.0)
[2018-05-21 05:26] LABS: CALCIUM 8.6 mg/dL (8.5-10.1); CREATININE 0.9 mg/dL (0.6-1.0); GFR 92.3; POTASSIUM 3.4 mmol/L (3.5-5.1)
[2018-05-21 07:00] VITALS: BP 117/56
[2018-05-21] MEDS: LACTOBACILLUS RHAMNOSUS GG 1 CAPSULE. PO SCH (10:23)
[2018-05-21 11:00] VITALS: BP 122/61
--- NOTE | 2018-05-21 11:17 | PDOC ---
PROGRESS NOTES Chief Complaint Chief Complaint Appendectomy post-op day 2 Acute abdominal pain Acute appendicitis Intractable n/v HTN Obesity Smoker History of Present Illness History of Present Illness Pt seen and examined post-op day 1 Pt sitting upright in bed, pleasant, talkative and recovering well from surgery Discussed plan with pt home today d/c planning 34 min Vitals Vitals Vital Signs Date Time Temp Pulse Resp B/P (MAP) Pulse Ox O2 Delivery O2 Flow Rate FiO2 05/21/18 07:30 Room Air 05/21/18 07:00 97.9 87 18 117/56 (76) 97 97.9 Physical Exam Physical Exam HEENT: SOPHIA b/l, mucous membranes moist General: Alert, Oriented X3, Cooperative, No acute distress Heart: Regular rate, Normal S1, Normal S2, No murmurs Lungs: Clear Abdomen: Normal bowel sounds, Soft, Other (Abd mildly tender. Post-op incisions clean, dry and intact) Extremities: No clubbing, No cyanosis, No edema Skin: No rashes, No breakdown Labs LABS Laboratory Tests Test 05/21/18 04:25 White Blood Count 11.9 x10^3/uL (4.0-11.0) Red Blood Count 4.24 x10^6/uL (3.50-5.40) Hemoglobin 11.8 g/dL (12.0-15.5) Hematocrit 33.5 % (36.0-47.0) Mean Corpuscular Volume 79 fL (79-100) Mean Corpuscular Hemoglobin 28 pg (25-35) Mean Corpuscular Hemoglobin Concent 35 g/dL (31-37) Red Cell Distribution Width 14.7 % (11.5-14.5) Platelet Count 270 x10^3/uL (140-400) Neutrophils (%) (Auto) 52 % (31-73) Lymphocytes (%) (Auto) 32 % (24-48) Monocytes (%) (Auto) 11 % (0-9) Eosinophils (%) (Auto) 4 % (0-3) Basophils (%) (Auto) 1 % (0-3) Neutrophils # (Auto) 6.2 x10^3uL (1.8-7.7) Lymphocytes # (Auto) 3.8 x10^3/uL (1.0-4.8) Monocytes # (Auto) 1.3 x10^3/uL (0.0-1.1) Eosinophils # (Auto) 0.5 x10^3/uL (0.0-0.7) Basophils # (Auto) 0.1 x10^3/uL (0.0-0.2) Sodium Level 140 mmol/L (136-145) Potassium Level 3.4 mmol/L (3.5-5.1) Chloride Level 105 mmol/L (98-107) Carbon Dioxide Level 28 mmol/L (21-32) Anion Gap 7 (6-14) Blood Urea Nitrogen 13 mg/dL (7-20) Creatinine 0.9 mg/dL (0.6-1.0) Estimated GFR (Cockcroft-Gault) 92.3 Glucose Level 90 mg/dL (70-99) Calcium Level 8.6 mg/dL (8.5-10.1) Assessment and Plan Assessmemt and Plan Problems Medical Problems: (1) Appendicitis Status: Acute Comment Review of Relevant I have reviewed the following items rachel (where applicable) has been applied. Labs Laboratory Tests Test 05/21/18 04:25 White Blood Count 11.9 x10^3/uL (4.0-11.0) Red Blood Count 4.24 x10^6/uL (3.50-5.40) Hemoglobin 11.8 g/dL (12.0-15.5) Hematocrit 33.5 % (36.0-47.0) Mean Corpuscular Volume 79 fL (79-100) Mean Corpuscular Hemoglobin 28 pg (25-35) Mean Corpuscular Hemoglobin Concent 35 g/dL (31-37) Red Cell Distribution Width 14.7 % (11.5-14.5) Platelet Count 270 x10^3/uL (140-400) Neutrophils (%) (Auto) 52 % (31-73) Lymphocytes (%) (Auto) 32 % (24-48) Monocytes (%) (Auto) 11 % (0-9) Eosinophils (%) (Auto) 4 % (0-3) Basophils (%) (Auto) 1 % (0-3) Neutrophils # (Auto) 6.2 x10^3uL (1.8-7.7) Lymphocytes # (Auto) 3.8 x10^3/uL (1.0-4.8) Monocytes # (Auto) 1.3 x10^3/uL (0.0-1.1) Eosinophils # (Auto) 0.5 x10^3/uL (0.0-0.7) Basophils # (Auto) 0.1 x10^3/uL (0.0-0.2) Sodium Level 140 mmol/L (136-145) Potassium Level 3.4 mmol/L (3.5-5.1) Chloride Level 105 mmol/L (98-107) Carbon Dioxide Level 28 mmol/L (21-32) Anion Gap 7 (6-14) Blood Urea Nitrogen 13 mg/dL (7-20) Creatinine 0.9 mg/dL (0.6-1.0) Estimated GFR (Cockcroft-Gault) 92.3 Glucose Level 90 mg/dL (70-99) Calcium Level 8.6 mg/dL (8.5-10.1) Laboratory Tests Test 05/21/18 04:25 White Blood Count 11.9 x10^3/uL (4.0-11.0) Red Blood Count 4.24 x10^6/uL (3.50-5.40) Hemoglobin 11.8 g/dL (12.0-15.5) Hematocrit 33.5 % (36.0-47.0) Mean Corpuscular Volume 79 fL (79-100) Mean Corpuscular Hemoglobin 28 pg (25-35) Mean Corpuscular Hemoglobin Concent 35 g/dL (31-37) Red Cell Distribution Width 14.7 % (11.5-14.5) Platelet Count 270 x10^3/uL (140-400) Neutrophils (%) (Auto) 52 % (31-73) Lymphocytes (%) (Auto) 32 % (24-48) Monocytes (%) (Auto) 11 % (0-9) Eosinophils (%) (Auto) 4 % (0-3) Basophils (%) (Auto) 1 % (0-3) Neutrophils # (Auto) 6.2 x10^3uL (1.8-7.7) Lymphocytes # (Auto) 3.8 x10^3/uL (1.0-4.8) Monocytes # (Auto) 1.3 x10^3/uL (0.0-1.1) Eosinophils # (Auto) 0.5 x10^3/uL (0.0-0.7) Basophils # (Auto) 0.1 x10^3/uL (0.0-0.2) Sodium Level 140 mmol/L (136-145) Potassium Level 3.4 mmol/L (3.5-5.1) Chloride Level 105 mmol/L (98-107) Carbon Dioxide Level 28 mmol/L (21-32) Anion Gap 7 (6-14) Blood Urea Nitrogen 13 mg/dL (7-20) Creatinine 0.9 mg/dL (0.6-1.0) Estimated GFR (Cockcroft-Gault) 92.3 Glucose Level 90 mg/dL (70-99) Calcium Level 8.6 mg/dL (8.5-10.1) Medications Current Medications Ondansetron HCl (Zofran) 4 mg 1X ONCE IM ; Start 05/18/18 at 21:15; Stop at 21:16; Status Cancel Dicyclomine HCl (Bentyl) 10 mg 1X ONCE IM Last administered on 05/18/18at 21: 13; Start 05/18/18 at 21:15; Stop 05/18/18 at 21:16; Status DC Fentanyl Citrate (Fentanyl 2ml Vial) 50 mcg 1X ONCE IV Last administered on at 21:05; Start 05/18/18 at 21:15; Stop 05/18/18 at 21:16; Status DC Sodium Chloride 1,000 ml @ 1,000 mls/hr 1X ONCE IV Last administered on 05/18at 21:04; Start 05/18/18 at 21:00; Stop 05/18/18 at 21:59; Status DC Ondansetron HCl (Zofran) 4 mg 1X ONCE IV Last administered on 05/18/18at 21:05 ; Start 05/18/18 at 21:30; Stop 05/18/18 at 21:31; Status DC Iohexol (Omnipaque 300 Mg/ml) 75 ml 1X ONCE IV Last administered on at 21:15; Start 05/18/18 at 21:15; Stop 05/18/18 at 21:16; Status DC Info (CONTRAST GIVEN -- Rx MONITORING) 1 each PRN DAILY PRN MC SEE COMMENTS; Start 05/18/18 at 21:15; Stop 05/20/18 at 21:14; Status DC Piperacillin Sod/ Tazobactam Sod 3.375 gm/Sodium Chloride 50 ml @ 100 mls/hr Q6HRS IV Last administered on 05/21/18at 05:39; Start 05/19/18 at 06:00 Ondansetron HCl (Zofran) 4 mg PRN Q8HRS PRN IV NAUSEA/VOMITING; Start at 23:15; Stop 05/19/18 at 23:14; Status DC Fentanyl Citrate (Fentanyl 2ml Vial) 50 mcg PRN Q2HR PRN IV PAIN Last administered on 05/19/18at 13:20; Start 05/18/18 at 23:15; Stop 05/19/18 at 23 :14; Status DC Sodium Chloride 1,000 ml @ 80 mls/hr [id number] IV Last administered on at 11:45; Start 05/18/18 at 23:15; Stop 05/19/18 at 23:14; Status DC Acetaminophen (Tylenol) 650 mg PRN Q4HRS PRN PO FEVER; Start 05/18/18 at 23:15 ; Stop 05/19/18 at 23:14; Status DC Ondansetron HCl (Zofran) 4 mg 1X ONCE IV Last administered on 05/19/18at 00:43 ; Start 05/18/18 at 23:30; Stop 05/18/18 at 23:31; Status DC Fentanyl Citrate (Fentanyl 2ml Vial) 50 mcg 1X ONCE IV Last administered on at 23:54; Start 05/18/18 at 23:30; Stop 05/18/18 at 23:31; Status DC Piperacillin Sod/ Tazobactam Sod 3.375 gm/Sodium Chloride 50 ml @ 100 mls/hr ONCE ONCE IV Last administered on 05/18/18at 23:55; Start 05/18/18 at 23:30; Stop 05/18/18 at 23:59; Status DC Bupivacaine HCl/ Epinephrine Bitart (Sensorcain-Mpf Epi 0.5%-1:[id number]) 30 ml STK -MED ONCE .ROUTE Last administered on 05/19/18at 07:52; Start 05/19/18 at 06: 11; Stop 10/23/18 at 07:12; Status DC Neostigmine Methylsulfate (Bloxiverz) 10 mg STK-MED ONCE .ROUTE ; Start at 07:16; Stop 05/19/18 at 07:17; Status DC Fentanyl Citrate (Fentanyl 2ml Vial) 100 mcg STK-MED ONCE .ROUTE ; Start at 07:16; Stop 05/19/18 at 07:17; Status DC Glycopyrrolate (Robinul) 1 mg STK-MED ONCE .ROUTE ; Start 05/19/18 at 07:16; Stop 05/19/18 at 07:17; Status DC Rocuronium [place] (Zemuron) 50 mg STK-MED ONCE .ROUTE ; Start 05/19/18 at 07: 16; Stop 05/19/18 at 07:17; Status DC Desflurane (Suprane) 30 ml STK-MED ONCE IH ; Start 05/19/18 at 07:17; Stop at 07:18; Status DC Propofol 20 ml @ As Directed STK-MED ONCE IV ; Start 05/19/18 at 07:17; Stop 05/19/18 at 07:18; Status DC Dexamethasone Sodium Phosphate (Decadron) 20 mg STK-MED ONCE .ROUTE ; Start at 07:17; Stop 05/19/18 at 07:18; Status DC Lidocaine HCl (Lidocaine Pf 2% Vial) 5 ml STK-MED ONCE .ROUTE ; Start 05/19/18 at 07:18; Stop 05/19/18 at 07:19; Status DC Ondansetron HCl (Zofran) 4 mg STK-MED ONCE .ROUTE ; Start 05/19/18 at 07:18; Stop 05/19/18 at 07:19; Status DC Ondansetron HCl (Zofran) 4 mg PRN Q6HRS PRN IV NAUSEA/VOMITING; Start at 07:30; Stop 05/19/18 at 18:00; Status DC Fentanyl Citrate (Fentanyl 2ml Vial) 25 mcg PRN Q5MIN PRN IV MILD PAIN; Start 05/19/18 at 07:30; Stop 05/19/18 at 18:00; Status DC Fentanyl Citrate (Fentanyl 2ml Vial) 50 mcg PRN Q5MIN PRN IV MODERATE TO SEVERE PAIN Last administered on 05/19/18at 10:37; Start 05/19/18 at 07:30; Stop 05/19/18 at 18:00; Status DC Morphine Sulfate (Morphine Sulfate) 1 mg PRN Q10MIN PRN IV SEVERE PAIN; Start 05/19/18 at 07:30; Stop 05/19/18 at 18:00; Status DC Ringer's Solution 1,000 ml @ 30 mls/hr Q24H IV ; Start 05/19/18 at 07:18; Stop 05/19/18 at 19:17; Status DC Lidocaine HCl (Xylocaine-Mpf 1% 2ml Vial) 2 ml 1X PRN PRN ID IV START; Start 05/19/18 at 07:30; Stop 05/19/18 at 18:00; Status DC Hydromorphone HCl (Dilaudid) 0.5 mg PRN Q10MIN PRN IV SEV PAIN, Second choice; Start 05/19/18 at 07:30; Stop 05/19/18 at 18:00; Status DC Prochlorperazine Edisylate (Compazine) 5 mg PACU PRN PRN IV NAUSEA, MRX1 Last administered on 05/19/18at 08:39; Start 05/19/18 at 07:30; Stop 05/19/18 at 18 :00; Status DC Fentanyl Citrate (Fentanyl 2ml Vial) 100 mcg STK-MED ONCE .ROUTE ; Start at 08:27; Stop 05/19/18 at 08:28; Status DC Prochlorperazine Edisylate (Compazine) 10 mg STK-MED ONCE .ROUTE ; Start at 08:27; Stop 05/19/18 at 08:28; Status DC Oxycodone/ Acetaminophen (Percocet 5/325) 1 tab PRN Q4HRS PRN PO MODERATE PAIN ; Start 05/19/18 at 09:00 Oxycodone/ Acetaminophen (Percocet 5/325) 2 tab PRN Q4HRS PRN PO SEVERE PAIN Last administered on 05/20/18at 22:00; Start 05/19/18 at 09:00 Desflurane (Suprane) 30 ml STK-MED ONCE IH ; Start 05/19/18 at 08:55; Stop at 08:56; Status DC Sevoflurane (Ultane) 60 ml STK-MED ONCE IH ; Start 05/19/18 at 08:56; Stop at 08:57; Status DC Sevoflurane (Ultane) 30 ml STK-MED ONCE IH ; Start 05/19/18 at 08:56; Stop at 08:57; Status DC Fentanyl Citrate (Fentanyl 2ml Vial) 100 mcg STK-MED ONCE .ROUTE ; Start at 09:33; Stop 05/19/18 at 09:34; Status DC Lactobacillus Rhamnosus (Culturelle) 1 cap BID PO Last administered on at 10:23; Start 05/20/18 at 21:00 Vitals/I & O Vital Sign - Last 24 Hours 05/20/18 05/20/18 05/20/18 05/20/18 15:00 19:00 20:00 22:00 Temp 97.7 98.6 97.7 98.6 Pulse 90 89 Resp 18 18 B/P (MAP) 112/62 (79) 135/83 (100) Pulse Ox 98 98 O2 Delivery Room Air Room Air Room Air Room Air 05/20/18 05/20/18 05/21/18 05/21/18 23:00 23:00 03:00 07:00 Temp 97.7 97.9 97.9 97.7 97.9 97.9 Pulse 59 69 87 Resp 18 18 18 B/P (MAP) 135/71 (92) 97/48 (64) 117/56 (76) Pulse Ox 98 98 97 O2 Delivery Room Air Room Air Room Air Room Air 05/21/18 07:30 O2 Delivery Room Air Intake and Output 05/20/18 05/20/18 05/21/18 15:00 23:00 07:00 Intake Total 400 ml Balance 400 ml LUCIE CHOI MD May 21, 2018 11:17
--- NOTE | 2018-05-21 12:25 | PDOC ---
JAZMÍN FIGUEROA INJECTION MACHINE OPERATOR 05/21/18 1225: SURGICAL PROGRESS NOTE Subjective Tolerating diet pain managed plans for DC home today Vital Signs Vital Signs Date Time Temp Pulse Resp B/P (MAP) Pulse Ox O2 Delivery O2 Flow Rate FiO2 05/21/18 07:30 Room Air 05/21/18 07:00 97.9 87 18 117/56 (76) 97 97.9 I&O Intake and Output 05/21/18 07:00 Intake Total 400 ml Balance 400 ml Intake Oral 400 ml # Voids 4 General: Alert, Oriented X3, Cooperative, No acute distress Abdomen: Soft (incisional TTP) Labs Laboratory Tests Test 05/21/18 04:25 White Blood Count 11.9 x10^3/uL (4.0-11.0) Red Blood Count 4.24 x10^6/uL (3.50-5.40) Hemoglobin 11.8 g/dL (12.0-15.5) Hematocrit 33.5 % (36.0-47.0) Mean Corpuscular Volume 79 fL (79-100) Mean Corpuscular Hemoglobin 28 pg (25-35) Mean Corpuscular Hemoglobin Concent 35 g/dL (31-37) Red Cell Distribution Width 14.7 % (11.5-14.5) Platelet Count 270 x10^3/uL (140-400) Neutrophils (%) (Auto) 52 % (31-73) Lymphocytes (%) (Auto) 32 % (24-48) Monocytes (%) (Auto) 11 % (0-9) Eosinophils (%) (Auto) 4 % (0-3) Basophils (%) (Auto) 1 % (0-3) Neutrophils # (Auto) 6.2 x10^3uL (1.8-7.7) Lymphocytes # (Auto) 3.8 x10^3/uL (1.0-4.8) Monocytes # (Auto) 1.3 x10^3/uL (0.0-1.1) Eosinophils # (Auto) 0.5 x10^3/uL (0.0-0.7) Basophils # (Auto) 0.1 x10^3/uL (0.0-0.2) Sodium Level 140 mmol/L (136-145) Potassium Level 3.4 mmol/L (3.5-5.1) Chloride Level 105 mmol/L (98-107) Carbon Dioxide Level 28 mmol/L (21-32) Anion Gap 7 (6-14) Blood Urea Nitrogen 13 mg/dL (7-20) Creatinine 0.9 mg/dL (0.6-1.0) Estimated GFR (Cockcroft-Gault) 92.3 Glucose Level 90 mg/dL (70-99) Calcium Level 8.6 mg/dL (8.5-10.1) Laboratory Tests Test 05/21/18 04:25 White Blood Count 11.9 x10^3/uL (4.0-11.0) Red Blood Count 4.24 x10^6/uL (3.50-5.40) Hemoglobin 11.8 g/dL (12.0-15.5) Hematocrit 33.5 % (36.0-47.0) Mean Corpuscular Volume 79 fL (79-100) Mean Corpuscular Hemoglobin 28 pg (25-35) Mean Corpuscular Hemoglobin Concent 35 g/dL (31-37) Red Cell Distribution Width 14.7 % (11.5-14.5) Platelet Count 270 x10^3/uL (140-400) Neutrophils (%) (Auto) 52 % (31-73) Lymphocytes (%) (Auto) 32 % (24-48) Monocytes (%) (Auto) 11 % (0-9) Eosinophils (%) (Auto) 4 % (0-3) Basophils (%) (Auto) 1 % (0-3) Neutrophils # (Auto) 6.2 x10^3uL (1.8-7.7) Lymphocytes # (Auto) 3.8 x10^3/uL (1.0-4.8) Monocytes # (Auto) 1.3 x10^3/uL (0.0-1.1) Eosinophils # (Auto) 0.5 x10^3/uL (0.0-0.7) Basophils # (Auto) 0.1 x10^3/uL (0.0-0.2) Sodium Level 140 mmol/L (136-145) Potassium Level 3.4 mmol/L (3.5-5.1) Chloride Level 105 mmol/L (98-107) Carbon Dioxide Level 28 mmol/L (21-32) Anion Gap 7 (6-14) Blood Urea Nitrogen 13 mg/dL (7-20) Creatinine 0.9 mg/dL (0.6-1.0) Estimated GFR (Cockcroft-Gault) 92.3 Glucose Level 90 mg/dL (70-99) Calcium Level 8.6 mg/dL (8.5-10.1) Problem List Problems Medical Problems: (1) Appendicitis Status: Acute Assessment/Plan s/p appy plans to DC home FU 2 weeks HERMILA NEVILLE MD 05/21/18 1415: SURGICAL PROGRESS NOTE Assessment/Plan Agree with above JAZMÍN FIGUEROA INJECTION MACHINE OPERATOR May 21, 2018 12:25 HERMILA NEVILLE MD May 21, 2018 14:15
--- NOTE | 2018-05-21 14:52 | PDOC3 ---
Discharge Summary Date of Admission: May 18, 2018 Date of Discharge: May 21, 2018 Follow-Up: 3-5 days Admitting Diagnosis comment: discharge diagnosis Chief Complaint Appendectomy post-op day 2 Acute abdominal pain Acute appendicitis Intractable n/v HTN Obesity Smoker History of Present Illness History of Present Illness Pt seen and examined post-op day 2 Pt sitting upright in bed, pleasant, talkative and recovering well from surgery nad Discussed plan with pt home today d/c planning 34 min Vitals Vitals Vital Signs Date Time Temp Pulse Resp B/P (MAP) Pulse Ox O2 Delivery O2 Flow Rate FiO2 05/21/18 07:30 Room Air 05/21/18 07:00 97.9 87 18 117/56 (76) 97 97.9 Physical Exam Physical Exam HEENT: SOPHIA b/l, mucous membranes moist General: Alert, Oriented X3, Cooperative, No acute distress Heart: Regular rate, Normal S1, Normal S2, No murmurs Lungs: Clear Abdomen: Normal bowel sounds, Soft, Other (Abd mildly tender. Post-op incisions clean, dry and intact) Extremities: No clubbing, No cyanosis, No edema Skin: No rashes, No breakdown FINAL DIAGNOSIS Problems Medical Problems: (1) Appendicitis Status: Acute Brief Hospital Course Ms. Davis is a 27 old [sex] who presented with [acute appendicitis ] CONDITION AT DISCHARGE: Improved Discharge Medications Current Medications Ondansetron HCl (Zofran) 4 mg 1X ONCE IM ; Start 05/18/18 at 21:15; Stop at 21:16; Status Cancel Dicyclomine HCl (Bentyl) 10 mg 1X ONCE IM Last administered on 05/18/18at 21: 13; Start 05/18/18 at 21:15; Stop 05/18/18 at 21:16; Status DC Fentanyl Citrate (Fentanyl 2ml Vial) 50 mcg 1X ONCE IV Last administered on at 21:05; Start 05/18/18 at 21:15; Stop 05/18/18 at 21:16; Status DC Sodium Chloride 1,000 ml @ 1,000 mls/hr 1X ONCE IV Last administered on 05/18at 21:04; Start 05/18/18 at 21:00; Stop 05/18/18 at 21:59; Status DC Ondansetron HCl (Zofran) 4 mg 1X ONCE IV Last administered on 05/18/18at 21:05 ; Start 05/18/18 at 21:30; Stop 05/18/18 at 21:31; Status DC Iohexol (Omnipaque 300 Mg/ml) 75 ml 1X ONCE IV Last administered on at 21:15; Start 05/18/18 at 21:15; Stop 05/18/18 at 21:16; Status DC Info (CONTRAST GIVEN -- Rx MONITORING) 1 each PRN DAILY PRN MC SEE COMMENTS; Start 05/18/18 at 21:15; Stop 05/20/18 at 21:14; Status DC Piperacillin Sod/ Tazobactam Sod 3.375 gm/Sodium Chloride 50 ml @ 100 mls/hr Q6HRS IV Last administered on 05/21/18at 12:00; Start 05/19/18 at 06:00 Ondansetron HCl (Zofran) 4 mg PRN Q8HRS PRN IV NAUSEA/VOMITING; Start at 23:15; Stop 05/19/18 at 23:14; Status DC Fentanyl Citrate (Fentanyl 2ml Vial) 50 mcg PRN Q2HR PRN IV PAIN Last administered on 05/19/18at 13:20; Start 05/18/18 at 23:15; Stop 05/19/18 at 23 :14; Status DC Sodium Chloride 1,000 ml @ 80 mls/hr [id number] IV Last administered on at 11:45; Start 05/18/18 at 23:15; Stop 05/19/18 at 23:14; Status DC Acetaminophen (Tylenol) 650 mg PRN Q4HRS PRN PO FEVER; Start 05/18/18 at 23:15 ; Stop 05/19/18 at 23:14; Status DC Ondansetron HCl (Zofran) 4 mg 1X ONCE IV Last administered on 05/19/18at 00:43 ; Start 05/18/18 at 23:30; Stop 05/18/18 at 23:31; Status DC Fentanyl Citrate (Fentanyl 2ml Vial) 50 mcg 1X ONCE IV Last administered on at 23:54; Start 05/18/18 at 23:30; Stop 05/18/18 at 23:31; Status DC Piperacillin Sod/ Tazobactam Sod 3.375 gm/Sodium Chloride 50 ml @ 100 mls/hr ONCE ONCE IV Last administered on 05/18/18at 23:55; Start 05/18/18 at 23:30; Stop 05/18/18 at 23:59; Status DC Bupivacaine HCl/ Epinephrine Bitart (Sensorcain-Mpf Epi 0.5%-1:949000) 30 ml STK -MED ONCE .ROUTE Last administered on 05/19/18at 07:52; Start 05/19/18 at 06: 11; Stop 05/19/18 at 07:12; Status DC Neostigmine Methylsulfate (Bloxiverz) 10 mg STK-MED ONCE .ROUTE ; Start at 07:16; Stop 05/19/18 at 07:17; Status DC Fentanyl Citrate (Fentanyl 2ml Vial) 100 mcg STK-MED ONCE .ROUTE ; Start at 07:16; Stop 05/19/18 at 07:17; Status DC Glycopyrrolate (Robinul) 1 mg STK-MED ONCE .ROUTE ; Start 05/19/18 at 07:16; Stop 05/19/18 at 07:17; Status DC Rocuronium [place] (Zemuron) 50 mg STK-MED ONCE .ROUTE ; Start 05/19/18 at 07: 16; Stop 05/19/18 at 07:17; Status DC Desflurane (Suprane) 30 ml STK-MED ONCE IH ; Start 05/19/18 at 07:17; Stop at 07:18; Status DC Propofol 20 ml @ As Directed STK-MED ONCE IV ; Start 05/19/18 at 07:17; Stop 05/19/18 at 07:18; Status DC Dexamethasone Sodium Phosphate (Decadron) 20 mg STK-MED ONCE .ROUTE ; Start at 07:17; Stop 05/19/18 at 07:18; Status DC Lidocaine HCl (Lidocaine Pf 2% Vial) 5 ml STK-MED ONCE .ROUTE ; Start 05/19/18 at 07:18; Stop 05/19/18 at 07:19; Status DC Ondansetron HCl (Zofran) 4 mg STK-MED ONCE .ROUTE ; Start 05/19/18 at 07:18; Stop 05/19/18 at 07:19; Status DC Ondansetron HCl (Zofran) 4 mg PRN Q6HRS PRN IV NAUSEA/VOMITING; Start at 07:30; Stop 05/19/18 at 18:00; Status DC Fentanyl Citrate (Fentanyl 2ml Vial) 25 mcg PRN Q5MIN PRN IV MILD PAIN; Start 05/19/18 at 07:30; Stop 05/19/18 at 18:00; Status DC Fentanyl Citrate (Fentanyl 2ml Vial) 50 mcg PRN Q5MIN PRN IV MODERATE TO SEVERE PAIN Last administered on 05/19/18at 10:37; Start 05/19/18 at 07:30; Stop 05/19/18 at 18:00; Status DC Morphine Sulfate (Morphine Sulfate) 1 mg PRN Q10MIN PRN IV SEVERE PAIN; Start 05/19/18 at 07:30; Stop 05/19/18 at 18:00; Status DC Ringer's Solution 1,000 ml @ 30 mls/hr Q24H IV ; Start 05/19/18 at 07:18; Stop 05/19/18 at 19:17; Status DC Lidocaine HCl (Xylocaine-Mpf 1% 2ml Vial) 2 ml 1X PRN PRN ID IV START; Start 05/19/18 at 07:30; Stop 05/19/18 at 18:00; Status DC Hydromorphone HCl (Dilaudid) 0.5 mg PRN Q10MIN PRN IV SEV PAIN, Second choice; Start 05/19/18 at 07:30; Stop 05/19/18 at 18:00; Status DC Prochlorperazine Edisylate (Compazine) 5 mg PACU PRN PRN IV NAUSEA, MRX1 Last administered on 05/19/18at 08:39; Start 05/19/18 at 07:30; Stop 05/19/18 at 18 :00; Status DC Fentanyl Citrate (Fentanyl 2ml Vial) 100 mcg STK-MED ONCE .ROUTE ; Start at 08:27; Stop 05/19/18 at 08:28; Status DC Prochlorperazine Edisylate (Compazine) 10 mg STK-MED ONCE .ROUTE ; Start at 08:27; Stop 05/19/18 at 08:28; Status DC Oxycodone/ Acetaminophen (Percocet 5/325) 1 tab PRN Q4HRS PRN PO MODERATE PAIN ; Start 05/19/18 at 09:00 Oxycodone/ Acetaminophen (Percocet 5/325) 2 tab PRN Q4HRS PRN PO SEVERE PAIN Last administered on 05/20/18at 22:00; Start 05/19/18 at 09:00 Desflurane (Suprane) 30 ml STK-MED ONCE IH ; Start 05/19/18 at 08:55; Stop at 08:56; Status DC Sevoflurane (Ultane) 60 ml STK-MED ONCE IH ; Start 05/19/18 at 08:56; Stop at 08:57; Status DC Sevoflurane (Ultane) 30 ml STK-MED ONCE IH ; Start 05/19/18 at 08:56; Stop at 08:57; Status DC Fentanyl Citrate (Fentanyl 2ml Vial) 100 mcg STK-MED ONCE .ROUTE ; Start at 09:33; Stop 05/19/18 at 09:34; Status DC Lactobacillus Rhamnosus (Culturelle) 1 cap BID PO Last administered on at 10:23; Start 05/20/18 at 21:00 Vital Signs Vital Signs Date Time Temp Pulse Resp B/P (MAP) Pulse Ox O2 Delivery O2 Flow Rate FiO2 05/21/18 07:30 Room Air 05/21/18 07:00 97.9 87 18 117/56 (76) 97 97.9 Labs Laboratory Tests Test 05/21/18 04:25 White Blood Count 11.9 x10^3/uL (4.0-11.0) Red Blood Count 4.24 x10^6/uL (3.50-5.40) Hemoglobin 11.8 g/dL (12.0-15.5) Hematocrit 33.5 % (36.0-47.0) Mean Corpuscular Volume 79 fL (79-100) Mean Corpuscular Hemoglobin 28 pg (25-35) Mean Corpuscular Hemoglobin Concent 35 g/dL (31-37) Red Cell Distribution Width 14.7 % (11.5-14.5) Platelet Count 270 x10^3/uL (140-400) Neutrophils (%) (Auto) 52 % (31-73) Lymphocytes (%) (Auto) 32 % (24-48) Monocytes (%) (Auto) 11 % (0-9) Eosinophils (%) (Auto) 4 % (0-3) Basophils (%) (Auto) 1 % (0-3) Neutrophils # (Auto) 6.2 x10^3uL (1.8-7.7) Lymphocytes # (Auto) 3.8 x10^3/uL (1.0-4.8) Monocytes # (Auto) 1.3 x10^3/uL (0.0-1.1) Eosinophils # (Auto) 0.5 x10^3/uL (0.0-0.7) Basophils # (Auto) 0.1 x10^3/uL (0.0-0.2) Sodium Level 140 mmol/L (136-145) Potassium Level 3.4 mmol/L (3.5-5.1) Chloride Level 105 mmol/L (98-107) Carbon Dioxide Level 28 mmol/L (21-32) Anion Gap 7 (6-14) Blood Urea Nitrogen 13 mg/dL (7-20) Creatinine 0.9 mg/dL (0.6-1.0) Estimated GFR (Cockcroft-Gault) 92.3 Glucose Level 90 mg/dL (70-99) Calcium Level 8.6 mg/dL (8.5-10.1) Laboratory Tests Test 05/21/18 04:25 White Blood Count 11.9 x10^3/uL (4.0-11.0) Red Blood Count 4.24 x10^6/uL (3.50-5.40) Hemoglobin 11.8 g/dL (12.0-15.5) Hematocrit 33.5 % (36.0-47.0) Mean Corpuscular Volume 79 fL (79-100) Mean Corpuscular Hemoglobin 28 pg (25-35) Mean Corpuscular Hemoglobin Concent 35 g/dL (31-37) Red Cell Distribution Width 14.7 % (11.5-14.5) Platelet Count 270 x10^3/uL (140-400) Neutrophils (%) (Auto) 52 % (31-73) Lymphocytes (%) (Auto) 32 % (24-48) Monocytes (%) (Auto) 11 % (0-9) Eosinophils (%) (Auto) 4 % (0-3) Basophils (%) (Auto) 1 % (0-3) Neutrophils # (Auto) 6.2 x10^3uL (1.8-7.7) Lymphocytes # (Auto) 3.8 x10^3/uL (1.0-4.8) Monocytes # (Auto) 1.3 x10^3/uL (0.0-1.1) Eosinophils # (Auto) 0.5 x10^3/uL (0.0-0.7) Basophils # (Auto) 0.1 x10^3/uL (0.0-0.2) Sodium Level 140 mmol/L (136-145) Potassium Level 3.4 mmol/L (3.5-5.1) Chloride Level 105 mmol/L (98-107) Carbon Dioxide Level 28 mmol/L (21-32) Anion Gap 7 (6-14) Blood Urea Nitrogen 13 mg/dL (7-20) Creatinine 0.9 mg/dL (0.6-1.0) Estimated GFR (Cockcroft-Gault) 92.3 Glucose Level 90 mg/dL (70-99) Calcium Level 8.6 mg/dL (8.5-10.1) Allergies Allergies Coded Allergies Type Severity Reaction Last Updated Verified No Known Drug Allergies 05/18/18 No Disposition/Orders: D/C to Home Patient Instructions d/c planning 35 min k-dur 40 meq x 1 now LUCIE CHOI MD May 21, 2018 14:52
--- NOTE | 2018-05-21 14:54 | DISCH ---
DISCHARGE INSTRUCTIONS Condition on Discharge Condition on Discharge: Stable Activity After Discharge Activity Instructions for Disc: Activity as tolerated Lifting Instructions after Dis: No heavy lifting, No pulling or pushing Exercise Instruction after Dis: Walk 10 min, 3 x per day Driving Instructions after Dis: Do not drive Diet after Discharge Diet after Discharge: Regular Contacting the DR. after DC Call your doctor for: If your condition worsens Warfarin Follow-Up Warfarin Follow UP: see surgery 10-14 days LUCIE CHOI MD May 21, 2018 14:54
[2018-05-21] MEDS ORDERED: OXYC1TAB7 PO (14:56)
[2018-05-21] MEDS ORDERED: POTASSIUM CHLORIDE 20 MEQ TABLET.ER. PO ONE (15:00)
== END 2018-05-21 16:45 | disposition home or self-care (01) | DRG 341 ==
LOC: ER 19:03 → 4 NORTH 23:07
PROVIDERS: ADMIT Internal Medicine; ATTEND Internal Medicine
PROC: 0DTJ4ZZ Resection of Appendix, Percutaneous Endoscopic Approach (ICD-10-PCS; principal; 2018-05-18)
DX: K35.80 Unspecified acute appendicitis (principal); R65.11 Systemic inflammatory response syndrome (SIRS) of non-infectious origin with acute organ dysfunction; I10 Essential (primary) hypertension; E66.9 Obesity, unspecified; F17.210 Nicotine dependence, cigarettes, uncomplicated; F41.9 Anxiety disorder, unspecified; Z79.899 Other long term (current) drug therapy
CPT/HCPCS: 36415; 74160; 80048; 80053; 81001; 81025; 83690; 85025; 87086; 88304; 93975; 96361; 96365; 96372; 96375; 96376; J0500; J0780; J1100; J2001; J2405; J2543; J2704; J2710; J3010; J3490; J7030; J7120; Q9967; 99285-25

== ENCOUNTER 2018-11-21 17:31 | Emergency (ER) | payer OTHER ==
[~2018-11-21] VITALS: Ht 185.4 cm; Wt 127.0 kg
[~2018-11-21 17:31] MED LIST: OXYC1TAB7 PO
[2018-11-21 17:45] VITALS: BP 147/82
[2018-11-21] MEDS ORDERED: PRED50TA PO (18:07)
[2018-11-21] MEDS ORDERED: AMOX875T PO (18:07)
--- NOTE | 2018-11-21 18:07 | PHYS DOC ---
Past Medical History Past Medical History: Hypertension Past Surgical History: No Surgical History Alcohol Use: Occasionally Drug Use: None Adult General Chief Complaint Chief Complaint: SORE THROAT HPI HPI Patient is a 28 year old female with history of hypertension who presents to the ED today complaining of sore throat for 3 days. Patient denies any fever coughing or congestion. She states she's tried [id number] remedies including Chloraseptic with no relief. Review of Systems Review of Systems Constitutional: Denies fever or chills [] Eyes: Denies change in visual acuity, redness, or eye pain [] HENT: Reports sore throat. Denies nasal congestion Respiratory: Denies cough or shortness of breath [] Cardiovascular: No additional information not addressed in HPI [] GI: Denies abdominal pain, nausea, vomiting, bloody stools or diarrhea [] : Denies dysuria or hematuria [] Musculoskeletal: Denies back pain or joint pain [] Integument: Denies rash or skin lesions [] Neurologic: Denies headache, focal weakness or sensory changes [] All other systems were reviewed and found to be within normal limits, except as documented in this note. Allergies Allergies Allergies Coded Allergies Type Severity Reaction Last Updated Verified No Known Drug Allergies 05/18/18 No Physical Exam Physical Exam Constitutional: Well developed, well nourished, no acute distress, non-toxic appearance. [] HENT: Normocephalic, atraumatic, bilateral external ears normal, oropharynx moist, no oral exudates, nose normal. [] mild erythema to posterior pharynx, trace exudate, midline uvula, +2 anterior cervical adenopathy. Eyes: PERRLA, EOMI, conjunctiva normal, no discharge. [] Neck: Normal range of motion, no tenderness, supple, no stridor. [] Cardiovascular:Heart rate regular rhythm, no murmur [] Lungs & Thorax: Bilateral breath sounds clear to auscultation [] Abdomen: Bowel sounds normal, soft, no tenderness, no masses, no pulsatile masses. [] Skin: Warm, dry, no erythema, no rash. [] Back: No tenderness, no CVA tenderness. [] Extremities: No tenderness, no cyanosis, no clubbing, ROM intact, no edema. [] Neurologic: Alert and oriented X 3, normal motor function, normal sensory function, no focal deficits noted. [] Psychologic: Affect normal, judgement normal, mood normal. [] EKG EKG [] Radiology/Procedures Radiology/Procedures [] Course & Med Decision Making Course & Med Decision Making Pertinent Labs and Imaging studies reviewed. (See chart for details) This is a 28-year-old female patient presenting to the ED today with a physical exam consistent tonsillitis. Was discharged on prednisone and amoxicillin. Saltwater gargles recommended, Tylenol/Motrin for pain. Follow-up with primary care doctor in 1-2 weeks of ENT. Provided return precautions. Dragon Disclaimer Dragon Disclaimer This electronic medical record was generated, in whole or in part, using a voice recognition dictation system. Departure Departure Impression: Primary Impression: Acute tonsillitis Disposition: HOME, SELF-CARE Condition: STABLE Referrals: NO PCP (PCP) BRIAN JIANG MD follow up in 1-2 weeks Patient Instructions: Tonsillitis, [id number] Additional Instructions: You were evaluated in the emergency room and noted to have a throat infection. We put you on antibiotics, ensure you complete them. Follow-up with your own doctor or the provided ENT doctor in 1-2 weeks, come back to the ED at any point symptoms worsen. Scripts Amoxicillin (AMOXICILLIN) 875 Mg Tablet 1 TAB PO BID, #14 TAB Prov: GALA BARRETO APRN 11/21/18 Prednisone (PREDNISONE) 50 Mg Tablet 1 TAB PO DAILY, #5 TAB Prov: GALA BARRETO APRN 11/21/18 Problem Qualifiers Primary Impression: Acute tonsillitis Pharyngitis/tonsillitis etiology: unspecified etiology Qualified Codes: J03.90 - Acute tonsillitis, unspecified GALA BARRETO APRN Nov 21, 2018 18:07
== END 2018-11-21 18:25 | disposition home or self-care (01) ==
LOC: ER 17:31
DX: J03.90 Acute tonsillitis, unspecified (principal); I10 Essential (primary) hypertension
CPT/HCPCS: 99283

== ENCOUNTER 2019-12-06 09:45 | Emergency (ER) | payer MEDICAID, OTHER ==
[~2019-12-06] VITALS: Ht 185.4 cm; Wt 158.1 kg
[~2019-12-06 09:45] MED LIST changes: +AMOX875T PO; +PRED50TA PO
[2019-12-06 10:00] VITALS: BP 145/89
[2019-12-06] MEDS ORDERED: PRED20TA PO (10:06)
[2019-12-06] MEDS ORDERED: ALBU2.5V8 IH (10:06)
--- NOTE | 2019-12-06 10:06 | PHYS DOC ---
Past Medical History Past Medical History: Hypertension Past Surgical History: No Surgical History Smoking Status: Never Smoker Alcohol Use: Occasionally Drug Use: None General Adult EDM: Chief Complaint: COUGH HPI: HPI: Patient is a 29-year-old relatively healthy female presents with a 2 or 3-day history of cough and congestion. She denies any fever chills or sweats. She denies any hemoptysis. She states she feels like she needs a breathing treatment. [] Review of Systems: Review of Systems: Constitutional: Denies fever or chills. [] Eyes: Denies change in visual acuity. [] HENT: Denies nasal congestion or sore throat. [] Respiratory: Per HPI [] Cardiovascular: Denies chest pain or edema. [] GI: Denies abdominal pain, nausea, vomiting, bloody stools or diarrhea. [] : Denies dysuria. [] Musculoskeletal: Denies back pain or joint pain. [] Integument: Denies rash. [] Neurologic: Denies headache, focal weakness or sensory changes. [] Endocrine: Denies polyuria or polydipsia. [] Lymphatic: Denies swollen glands. [] Psychiatric: Denies depression or anxiety. [] Heart Score: Risk Factors: Risk Factors: DM, Current or recent (<one month) smoker, HTN, HLP, family history of CAD, obesity. Risk Scores: Score 0 - 3: 2.5% MACE over next 6 weeks - Discharge Home Score 4 - 6: 20.3% MACE over next 6 weeks - Admit for Clinical Observation Score 7 - 10: 72.7% MACE over next 6 weeks - Early Invasive Strategies Allergies: Allergies: Allergies Coded Allergies Type Severity Reaction Last Updated Verified No Known Drug Allergies 05/18/18 No Physical Exam: PE: Constitutional: Well developed, well nourished, no acute distress, non-toxic appearance. [] HENT: Normocephalic, atraumatic, bilateral external ears normal, oropharynx moist, no oral exudates, nose normal. [] Eyes: PERRLA, EOMI, conjunctiva normal, no discharge. [] Neck: Normal range of motion, no tenderness, supple, no stridor. [] Cardiovascular:Heart rate regular rhythm, no murmur [] Lungs & Thorax: Bilateral breath sounds clear to auscultation [] Abdomen: Bowel sounds normal, soft, no tenderness, no masses, no pulsatile masses. [] Skin: Warm, dry, no erythema, no rash. [] Back: No tenderness, no CVA tenderness. [] Extremities: No tenderness, no cyanosis, no clubbing, ROM intact, no edema. [] Neurologic: Alert and oriented X 3, normal motor function, normal sensory function, no focal deficits noted. [] Psychologic: Affect normal, judgement normal, mood normal. [] EKG: EKG: [] Radiology/Procedures: Radiology/Procedures: [] Course & Med Decision Making: Course & Med Decision Making Pertinent Labs and Imaging studies reviewed. (See chart for details) [] Dragon Disclaimer: DragNotorious Disclaimer: This electronic medical record was generated, in whole or in part, using a voice recognition dictation system. Departure Departure Impression: Primary Impression: Viral URI with cough Disposition: HOME, SELF-CARE Condition: STABLE Referrals: NO PCP (PCP) Patient Instructions: Upper Respiratory Infection, Adult Scripts Albuterol Sulfate (PROAIR HFA INHALER) 8.5 Gm Hfa.aer.ad 2 PUFF IH PRN Q4-6HRS PRN for wheezing for 21 Days, #1 INHALER 0 Refills Prov: SHIRA SON DO 12/06/19 Prednisone (PREDNISONE) 20 Mg Tablet 3 TAB PO DAILY PRN for COUGH for 5 Days, #15 TAB Prov: SHIRA SON DO 12/06/19 SHIRA SON DO December 06, 2019 10:06
== END 2019-12-06 10:11 | disposition home or self-care (01) ==
LOC: ER 09:45
DX: J06.9 Acute upper respiratory infection, unspecified (principal); R05 Cough; I10 Essential (primary) hypertension
CPT/HCPCS: 99283

== ENCOUNTER 2021-01-29 07:36 | Emergency (ER) | payer MEDICAID ==
[~2021-01-29] VITALS: Ht 185.4 cm; Wt 127.2 kg
[~2021-01-29 07:36] MED LIST changes: +ALBU2.5V8 IH; +PRED20TA PO
--- NOTE | 2021-01-29 07:41 | PHYS DOC ---
Past Medical History Past Medical History: Hypertension Past Surgical History: Appendectomy Smoking Status: Never Smoker Alcohol Use: Occasionally Drug Use: Marijuana General Adult EDM: Chief Complaint: ABDOMINAL PAIN HPI: HPI: Patient is a 30-year-old female presenting for abdominal pain. Onset was approximately 3-4 days prior. Reports last known meal that day was various fast food items from [employer]. Reports ever since, having generalized abdominal cramping, nausea with too numerous to count episodes of vomit and looser stools than usual. She attempted to take Pepto-Bismol without relief. P.o. intake has made her nauseous and worsen symptoms. Denies any de pain. Timing of symptoms has been constant since onset. Denies any fever, chest pain, ripping or tearing sensation in torso, shortness of breath, cough, urinary symptoms, no sick contacts or recent travel. She admits she has not been vaccinated for COVID-19, no known COVID-19 exposure, no URI symptoms and/or loss of taste or smell. Denies cigarette abuse, drinks occasionally and admits smoking marijuana. Admits last time she smoked marijuana was a few days before symptom onset. Review of Systems: Review of Systems: Fourteen body systems of review of systems have been reviewed. See HPI for pertinent positives and negative responses, other cárdenas all other systems are negative, non-pertinent or non-contributory Heart Score: C/O Chest Pain: No Risk Factors: Risk Factors: DM, Current or recent (<one month) smoker, HTN, HLP, family history of CAD, obesity. Risk Scores: Score 0 - 3: 2.5% MACE over next 6 weeks - Discharge Home Score 4 - 6: 20.3% MACE over next 6 weeks - Admit for Clinical Observation Score 7 - 10: 72.7% MACE over next 6 weeks - Early Invasive Strategies Allergies: Allergies: Allergies Coded Allergies Type Severity Reaction Last Updated Verified No Known Drug Allergies 05/18/18 No Physical Exam: PE: Constitutional: Well developed, well nourished, no acute distress, non-toxic appearance. HENT: Normocephalic, atraumatic, bilateral external ears normal, oropharynx dry, no oral exudates, nose normal. Eyes: PERRLA, EOMI, conjunctiva normal, no discharge. Neck: Normal range of motion, no tenderness, supple, no stridor. Cardiovascular: Heart rate regular, sinus rhythm, no murmurs rubs or gallops Lungs & Thorax: Bilateral breath sounds clear to auscultation Abdomen: Bowel sounds normal, soft, no tenderness, no masses, no pulsatile masses. Nonsurgical abdomen, no peritoneal signs Skin: Warm, dry, no erythema, no rash. Back: No tenderness, no CVA tenderness. Extremities: No tenderness, no cyanosis, no clubbing, ROM intact, no edema. Neurologic: Alert and oriented X 3, grossly normal motor & sensory function, no focal deficits noted. Psychologic: Affect normal, judgement normal, mood normal. Current Patient Data: Labs: Laboratory Tests Test 01/29/21 07:44 01/29/21 07:51 01/29/21 08:06 Urine Collection Type Unknown Urine Color Yellow Urine Clarity Cloudy Urine pH 6.0 Urine Specific [place] 1.025 Urine Protein Negative mg/dL Urine Glucose (UA) Negative mg/dL Urine Ketones (Stick) Negative mg/dL Urine Blood Negative Urine Nitrite Negative Urine Bilirubin Negative Urine Urobilinogen Dipstick 1.0 mg/dL Urine Leukocyte Esterase Large Urine RBC Occ /HPF Urine WBC 5-10 /HPF Urine Squamous Epithelial Cells Many /LPF Urine Bacteria Moderate /HPF Bedside Urine HCG, Qualitative Hcg positive White Blood Count 10.2 x10^3/uL Red Blood Count 4.75 x10^6/uL Hemoglobin 13.3 g/dL Hematocrit 38.0 % Mean Corpuscular Volume 80 fL Mean Corpuscular Hemoglobin 28 pg Mean Corpuscular Hemoglobin Concent 35 g/dL Red Cell Distribution Width 14.4 % Platelet Count 284 x10^3/uL Neutrophils (%) (Auto) 68 % Lymphocytes (%) (Auto) 22 % Monocytes (%) (Auto) 8 % Eosinophils (%) (Auto) 1 % Basophils (%) (Auto) 1 % Neutrophils # (Auto) 6.9 x10^3/uL Lymphocytes # (Auto) 2.2 x10^3/uL Monocytes # (Auto) 0.8 x10^3/uL Eosinophils # (Auto) 0.1 x10^3/uL Basophils # (Auto) 0.1 x10^3/uL Sodium Level 140 mmol/L Potassium Level 3.9 mmol/L Chloride Level 102 mmol/L Carbon Dioxide Level 26 mmol/L Anion Gap 12 Blood Urea Nitrogen 9 mg/dL Creatinine 0.8 mg/dL Estimated GFR (Cockcroft-Gault) 103.3 BUN/Creatinine Ratio 11 Glucose Level 105 mg/dL Calcium Level 8.7 mg/dL Total Bilirubin 0.7 mg/dL Aspartate Amino Transf (AST/SGOT) 7 U/L Alanine Aminotransferase (ALT/SGPT) 12 U/L Alkaline Phosphatase 69 U/L Total Protein 7.3 g/dL Albumin 3.4 g/dL Albumin/Globulin Ratio 0.9 Lipase 65 U/L Current Medications Medications (Trade) Dose Ordered Sig/Maurice Route PRN Reason Start Time Stop Time Status Last Admin Dose Admin Sodium Chloride 1,000 ml @ 1,000 mls/hr 1X ONCE IV 01/29/21 08:00 01/29/21 08:59 DC 01/29/21 08:13 Ondansetron HCl (Zofran) 4 mg 1X ONCE IVP 01/29/21 08:00 01/29/21 08:01 DC 01/29/21 08:13 Cephalexin HCl (Keflex) 500 mg TID PO 01/29/21 09:00 Vital Signs: Vital Signs Date Time Temp Pulse Resp B/P (MAP) Pulse Ox O2 Delivery O2 Flow Rate FiO2 01/29/21 07:38 99.0 102 18 135/82 (99) 99 Room Air 99.0 Vital Signs Date Time Temp Pulse Resp B/P (MAP) Pulse Ox O2 Delivery O2 Flow Rate FiO2 01/29/21 07:38 99.0 102 18 135/82 (99) 99 Room Air 99.0 EKG: EKG: [] Radiology/Procedures: Radiology/Procedures: [] Course & Med Decision Making: Course & Med Decision Making ABCs unremarkable. I notified patient of her , this is a surprise to her and was unplanned. Typical precautions and recommendations made to start vitamins and establish with prior CLEANING CUSTODIAN who delivered her previous kids. Also disclosed my concern for leukocyte esterase on urinalysis in a woman, joint decision made to start Keflex for this which she tolerated well in ER and subsequent prescription written. I discussed potential symptoms due to early versus UTI versus likely self-limiting gastrointestinal disease. Patient responded well to ER intervention provided that included antiemetics and IV fluid rehydration with improvement in heart rate and overall symptoms. I stressed need for close outpatient follow-up to review today's ER visit. Strict return precautions were also discussed at length with good understanding by patient. Patient voiced understanding and agreement with the plan. Patient knows to come back for repeat evaluation if concerning signs or symptoms present prior to outpatient follow-up. Hemodynamically stable, ambulatory and well-appearing at time of disposition. Raheem Disclaimer: Raheem Disclaimer: This electronic medical record was generated, in whole or in part, using a voice recognition dictation system. Departure Departure Impression: Primary Impression: Nausea vomiting and diarrhea Additional Impressions: and not yet delivered UTI (urinary tract infection) Disposition: HOME / SELF CARE / HOMELESS Condition: IMPROVED Referrals: NO PCP (PCP) Patient Instructions: ABCs of , Nausea and Vomiting Additional Instructions: You were seen for nausea and vomiting. The exact cause of this is unknown but given today's evaluation, it could be due to you early versus urinary tract infection versus likely viral gastrointestinal disease. You should take the prescribed antibiotics given for urinary urinary tract infection as written to completion. You should also continue supportive care measures discussed such as increasing p.o. fluid intake, taking daily multivitamin and contacting your prior CLEANING CUSTODIAN to review recent finding that you are . You should return to the ED if you develop abdominal pain, fever > 100.3, black/bloody stools, black/bloody vomiting, cannot keep water down, or any other new or concerning symptoms. Scripts Cephalexin (CEPHALEXIN) 500 Mg Tablet 1 TAB PO BID for 7 Days, #14 TAB Prov: MORENO RINCON DO 01/29/21 MORENO RINCON DO Jan 29, 2021 07:41
[2021-01-29] MEDS ORDERED: IV NORMAL SALINE 1000ML BAG 1,000 ML IV ONE (08:00)
[2021-01-29] MEDS ORDERED: ONDANSETRON PF 4 MG/2 ML VIAL. IVP ONE (08:00)
[2021-01-29 08:04] LABS: BILIRUBIN,URINE NEGATIVE (NEG); CLARITY,URINE CLOUDY; COLOR,URINE YELLOW; NITRITE,URINE NEGATIVE (NEG); PROTEIN,URINE NEGATIVE (NEG-TRACE)
[2021-01-29 08:25] LABS: BACTERIA,URINE MODERATE /HPF (0-FEW); RBC,URINE OCC /HPF (0-2)
[2021-01-29 08:28] LABS: BASO # 0.1 x10^3/uL (0.0-0.2); BASO % 1 % (0-3); EOS # 0.1 x10^3/uL (0.0-0.7); EOS % 1 % (0-3); HEMOGLOBIN 13.3 g/dL (12.0-15.5); LYMPH # 2.2 x10^3/uL (1.0-4.8); LYMPH % 22 % (24-48); MEAN CORPUSCULAR HEMOGLOBIN 28 pg (25-35); MEAN CORPUSCULAR HGB CONC 35 g/dL (31-37); MEAN CORPUSCULAR VOLUME 80 fL (79-100); MONO # 0.8 x10^3/uL (0.0-1.1); MONO % 8 % (0-9); NEUT # 6.9 x10^3/uL (1.8-7.7); NEUT % 68 % (31-73); PLATELET COUNT 284 x10^3/uL (140-400); RED BLOOD COUNT 4.75 x10^6/uL (3.50-5.40); RED CELL DISTRIBUTION WIDTH 14.4 % (11.5-14.5); WHITE BLOOD COUNT 10.2 x10^3/uL (4.0-11.0)
[2021-01-29 08:37] LABS: CALCIUM 8.7 mg/dL (8.5-10.1); CREATININE 0.8 mg/dL (0.6-1.0); GFR 103.3; POTASSIUM 3.9 mmol/L (3.5-5.1)
[2021-01-29 08:43] LABS: ALBUMIN 3.4 g/dL (3.4-5.0); ALBUMIN/GLOBULIN RATIO 0.9 (1.0-1.7); TOTAL BILIRUBIN 0.7 mg/dL (0.2-1.0); TOTAL PROTEIN 7.3 g/dL (6.4-8.2)
[2021-01-29 08:47] VITALS: BP 116/76
[2021-01-29] MEDS ORDERED: CEPH500T PO (08:55)
[2021-01-29] MEDS ORDERED: CEPHALEXIN 250 MG CAPSULE. PO SCH (09:00)
== END 2021-01-29 09:00 | disposition home or self-care (01) ==
LOC: ER 07:36
DX: O23.41 Unspecified infection of urinary tract in pregnancy, first trimester (principal); O16.1 Unspecified maternal hypertension, first trimester; Z3A.01 Less than 8 weeks gestation of pregnancy
CPT/HCPCS: 36415; 80053; 81001; 81025; 83690; 85025; 87086; 96361; 96374; 99284; J2405; J7030

== ENCOUNTER → 2021-05-31 | Outpatient (CLI) | payer MEDICAID ==
[~2021-05-31] MED LIST changes: +CEPH500T PO
--- NOTE | 2021-05-31 12:42 | RAD ---
EXAM: Ultrasound US OB >14 WEEKS 05/31/2021 7:10 AM INDICATION: Second trimester . COMPARISON: None FINDINGS: There is a single living intrauterine gestation in cephalic position. heart rate is [address] acenta is fundal. Cervix not visualized. The following anatomy as visualized: There is limited visualization of anatomy due to fet al position and patient body habitus. A 4 chamber heart is visualized on cine clip. cord insert ion is visualized. 4 extremities are visualized. face is visualized. Stomach is visualized. The lateral ventricles, cerebellum, and other structures of the brain are not well visualized due to technical limitations of the exam. Kidneys and bladder are not well visualized. Cervical, thoracic, l umbar, sacral spine are grossly unremarkable on sagittal view. biometry: Biparietal diameter: 5.69 cm, 23 weeks 3 days Head circumference: 21.57 cm, 23 weeks 4 days Abdominal circumference: 17.7 cm cm, 22 weeks 5 days Femur length: 4.49 cm, 24 weeks 6 days HC/AC ratio: 1.21 JAVAN: 11.7 Estimated gestational age by ultrasound: 23 weeks 5 days. Estimated weight: 611 g. 31st percent ile. Sonographic EDC 09/22/2021 IMPRESSION: 1. Single living intrauterine with gestational age by ultrasound 23 weeks 5 days, measuring 6 days behind gestational age by LMP. Estimated weight 611 g, 31st percentile. 2. Difficult anatomy scan due to patient body habitus and positioning of the fetus. kidne ys, bladder, and structures of the brain are not well-visualized due to technical limitations. The sp ine is grossly normal on sagittal view but not well visualized in axial plane. Recommend follow-up ul trasound to reevaluate anatomy. Electronically signed by: Tari Hawkins MD (05/31/2021 12:40 PM) [id number]
== END ==
LOC: US 06:57
PROVIDERS: ATTEND Obstetrics & Gynecology
DX: O00.01 Abdominal pregnancy with intrauterine pregnancy (principal); Z34.92 Encounter for supervision of normal pregnancy, unspecified, second trimester; Z3A.23 23 weeks gestation of pregnancy
CPT/HCPCS: 76805

== ENCOUNTER 2021-07-21 16:05 | Observation (INO) | payer MEDICAID | END 2021-07-21 17:05 | disposition home or self-care (01) | LOC: 3 SO LND 16:05 | PROVIDERS: ADMIT Obstetrics & Gynecology; ATTEND Obstetrics & Gynecology | DX: O46.93 Antepartum hemorrhage, unspecified, third trimester (principal); Z3A.30 30 weeks gestation of pregnancy | CPT/HCPCS: 59025; G0378; G0379 ==